=== PATIENT | female | born 1950 | race Caucasian/White ===

== ENCOUNTER → 2021-09-24 10:18 | Outpatient (CLI) | payer BC, SELFPAY ==
[2021-09-24 15:04] LABS: COVID19 -Nasal RAPID Negative (Negative)
--- NOTE | 2021-09-25 19:14 | DI.NM.S_ITS ---
DATE OF SERVICE: 09/24/2021 PROCEDURE: Exercise perfusion study. INDICATION: Syncope and SVT. RADIOPHARMACEUTICAL: 25.5 millicurie technetium-99m Myoview IV was injected at stress and 25.5 millicurie technetium-99m Myoview IV was injected at rest. CARDIAC STRESS: The patient underwent exercise perfusion study under the supervision of an attending staff. The patient walked on Dc protocol for 7 minutes and 22 seconds, achieved a maximum heart rate of 142, which was 96 percent of target heart rate. Baseline blood pressure 142/88 mmHg. Peak blood pressure 192/100 mmHg. In recovery, blood pressure returned back to 138/82 mmHg. The patient achieved 10.1 METs of workload. ANGÉLICA -30 percent. Baseline rhythm was sinus. During exercise, the patient had some nonspecific ST-T changes and occasional PVCs without any obvious ventricular tachycardia or atrial fibrillation. Artifact seen, as well. No chest discomfort. Had some shortness of breath. RAW DATA: There is adequate myocardial uptake. GATED STUDY: Resting LV ejection fraction 71 and stress LV ejection fraction 76 percent. Resting end-diastolic volume 79 mL. TID ratio 0.98, which is within normal limits. Lung/heart ratio 0.24, which is within normal limits. MYOCARDIAL PERFUSION SCAN: Stress supine, resting supine and stress prone images were compared to each other. The patient has normal myocardial perfusion. Summed stress score and summed rest score 0. CONCLUSION: This is a normal myocardial perfusion study. Good exercise tolerance. ANGÉLICA -30 percent. Hypertensive blood pressure response. Peak blood pressure 192/100 mmHg. No significant ischemic electrocardiographic changes or sustained arrhythmias seen. No chest discomfort. Left ventricular function is preserved. Overall low-risk myocardial perfusion scan. Carolyn Ventura - REAGAN/mandy/juliet doc#: [id number]/job#: [id number] dd: 09/25/2021 16:53:00 dt: 09/25/2021 19:02:00 DICTATING MD/COPIES TO: Mike Stanton MD COPIES MNE: OLENA;
== END ==
PROVIDERS: PCP Physician Assistant; Referring Provider Internal Medicine Cardiovascular Disease; Visit Provider Internal Medicine Cardiovascular Disease
DX: R55 Syncope and collapse (principal); I47.1 Supraventricular tachycardia; I47.2 Ventricular tachycardia; Z20.822 Contact with and (suspected) exposure to COVID-19
CPT/HCPCS: 78452; 87635; 93017; A9502

== ENCOUNTER 2022-10-01 09:41 | Emergency (ER) | payer BC, SELFPAY ==
--- NOTE | 2022-10-01 | DI.RAD.S_ITS ---
PROCEDURE: XR HIP W PEL IF DONE LT 2V INDICATIONS: LOW BACK PAIN / LEFT HIP PAIN TECHNIQUE: AP pelvis with lateral view(s) of the left hip(s). COMPARISON: None. FINDINGS: Bones: Moderate left and derf-ko-xbnfzblr right hip degenerative changes. Partially seen pubic symphysis degenerative changes also present. No displaced fracture or dislocation. Soft tissues: No suspicious calcifications. Suspected phleboliths are present in the pelvis. IMPRESSION: Moderate left and auaf-we-zxovfoiq right hip degenerative changes. No acute radiographic abnormality. If there is high concern for further derangement, consider MRI evaluation. Dictated by: Davon Bolivar M.D. on 10/01/2022 at 11:41 Approved by: Davon Bolivar M.D. on 10/01/2022 at 11:42
[2022-10-01 09:47] VITALS: BP 164/69; PULSE 65; RESP 22; O2SAT 98; BMI 28.6
--- NOTE | 2022-10-01 10:07 | DI.RAD.S_ITS ---
PROCEDURE: XR LUMBAR SPINE 2-3V INDICATIONS: low back pain TECHNIQUE: 3 views of the lumbar spine were acquired. COMPARISON: None. FINDINGS: Bones: Trace retrolisthesis of L2 on L3. Vertebral body heights are well maintained. Iszj-xo-dhjwgoiq degenerative changes, with disc space height loss, facet arthropathy, and osteophytes. No definite traumatic subluxation. Rightward spinal curvature is present on frontal view. Bilateral hip degenerative changes are partially seen. Soft tissues: No suspicious calcifications. Pelvic calcifications are probably phleboliths. Increased fecal loading. IMPRESSION: Mgsu-xn-vqivnpbv degenerative changes. Suspected degenerative retrolisthesis of L2 on L3, as well as rightward spinal curvature. If there is high concern for further derangement, consider MRI evaluation. Dictated by: Davon Bolivar M.D. on 10/01/2022 at 11:39 Approved by: Davon Bolivar M.D. on 10/01/2022 at 11:41
[2022-10-01] MEDS: KETOROLAC 30 MG/ML VIAL IM (10:41)
--- NOTE | 2022-10-01 11:33 | ED_ITS ---
HPI - Back Pain/Injury <Hai Coffey PA-C - Last Filed: 10/01/22 15:17> General Chief Complaint: Back Pain/Injury Stated Complaint: low back px Time Seen by Provider: 10/01/22 10:06 Source: patient and EMS History of Present Illness HPI Narrative: 71-year-old female with chronic back pain presents to the ED due to worsening lower back pain for the last 5 days. Patient states that she was trying to clip the toenails of her dog when she twisted her lower back, which caused her symptoms. Patient denies numbness, tingling, weakness, saddle paresthesias, urinary hesitancy, urinary incontinence, bowel incontinence. Patient states that she took a oxycodone this morning. Patient also took some Tylenol and ibuprofen. Patient reports modest relief with the medications. Patient describes the pain as in the left-side of the lower back radiating down into the left leg up until the knee. Patient states that it is very painful to bear weight and walk. Related Data Previous Rx's Medication Instructions Recorded oxycodone-acetaminophen 5 mg-325 1 tab PO TID PRN pain 3 days #10 10/01/22 mg tablet (Percocet) tabs prednisone 5 mg tablets in a dose See Rx Instructions PO .COMPLEX 10/01/22 pack #21 ea Review of Systems <Hai Coffey PA-C - Last Filed: 10/01/22 15:17> Review of Systems ROS Unobtainable: All systems reviewed & are unremarkable except as noted in HPI and below Constitutional Constitutional: Denies chills, Denies fatigue, Denies fever(s), Denies frequent falls, Denies lethargy and Denies weakness Eyes Eyes: Denies change in vision, Denies eye discharge, Denies irritation and Denies loss of vision ENT Ears, Nose, Mouth, and Throat: Denies change in voice, Denies dizziness, Denies neck pain, Denies sore throat and Denies throat swelling Cardiovascular Cardiovascular: Denies chest pain, Denies irregular heart rhythm, Denies lightheadedness, Denies palpitations, Denies dyspnea, Denies dyspnea on exertion and Denies orthopnea Respiratory Respiratory: Denies cough, Denies dyspnea, Denies dyspnea on exertion and Denies wheezing Gastrointestinal Gastrointestinal: Denies abdominal pain, Denies change in bowel habits, Denies diarrhea, Denies nausea and Denies vomiting Genitourinary Genitourinary: Denies hematuria, Denies flank pain, Denies urinary incontinence and Denies urinary urgency Musculoskeletal Musculoskeletal: Reports back pain, Denies muscle weakness, Denies neck pain, Denies numbness and Denies tingling Integumentary/Breasts Skin/Breast: Denies pruritus, Denies erythema, Denies rash and Denies wounds Neurologic Neurologic: Denies behavioral changes, Denies confusion, Denies dizziness, Denies frequent falls, Denies loss of vision, Denies numbness, Denies tingling and Denies weakness Psychiatric Psychiatric: Denies anxiety, Denies behavioral changes, Denies confusion, Denies depression, Denies homicidal ideation and Denies suicidal ideation Endocrine Endocrine: Denies fatigue, Denies flushing and Denies palpitations Hematologic/Lymphatic Hematologic/Lymphatic: Denies easy bruising Allergic/Immunologic Allergic/Immunologic: Denies urticaria, Denies throat swelling and Denies wheezing Patient History <Hai Coffey PA-C - Last Filed: 10/01/22 15:17> Social History Smoking Status: Never smoker Smoking Status: Never smoker alcohol intake frequency: 0-2 drinks per day Exam <Hai Coffey PA-C - Last Filed: 10/01/22 15:17> Narrative Exam Narrative: Const General:?cooperative, healthy appearing and comfortable [facility] Head:?normal to inspection Ears:?hearing grossly normal bilaterally Nose:?external nose normal Face and sinus:?normal facial exam and sinuses nontender Mouth:?oral mucosae normal Throat:?posterior oropharynx normal Eyes General:?appearance normal, both eyes and all related structures Neck Neck:?normal visual inspection and no lymphadenopathy noted Resp Effort & Inspection:?normal respiratory effort Auscultation:?clear to auscultation bilaterally Cardio Rate:?regular rate Rhythm:?regular rhythm Musculoskeletal No midline tenderness to palpation. No paraspinal tenderness to palpation. Full range of motion. Strength and sensation is intact. Patient is neurovascularly intact. Neuro General:?patient alert, patient awake and patient oriented x3 Initial Vital Signs Initial Vital Signs: Vital Signs Pulse Rate 65 10/01/22 09:47 Respiratory Rate 22 10/01/22 09:47 Blood Pressure 164/69 H 10/01/22 09:47 Pulse Oximetry 98 10/01/22 09:47 Oxygen Delivery Method Room Air 10/01/22 09:47 <Ingrid Glaser DO - Last Filed: 10/02/22 08:54> Initial Vital Signs Initial Vital Signs: Vital Signs Pulse Rate 65 10/01/22 09:47 Respiratory Rate 22 10/01/22 09:47 Blood Pressure 164/69 H 10/01/22 09:47 Pulse Oximetry 98 10/01/22 09:47 Oxygen Delivery Method Room Air 10/01/22 09:47 Course <Hai Coffey PA-C - Last Filed: 10/01/22 15:17> Orders Ordered: Discontinued Medications Cyclobenzaprine HCl (Cyclobenzaprine 10 Mg Tablet) 10 mg PO NOW ONE Stop: 10/01/22 11:46 Last Admin: 10/01/22 12:21 Dose: 10 mg Documented By: MPO Ketorolac Tromethamine (Ketorolac 30 Mg/Ml Vial) 30 mg IM NOW ONE Stop: 10/01/22 10:28 Last Admin: 10/01/22 10:41 Dose: 30 mg Documented By: MPO Lidocaine (Lidocaine Patch 1 Each Adh..Patch) 1 each TOP NOW ONE Stop: 10/01/22 11:47 Last Admin: 10/01/22 12:21 Dose: 1 each Documented By: MPO Morphine Sulfate (Morphine 4 Mg/Ml Inj) 4 mg IM NOW ONE Stop: 10/01/22 13:11 Last Admin: 10/01/22 13:57 Dose: 4 mg Documented By: JANIS Oxycodone/Acetaminophen (Oxycodone/Acetaminophen 5/325 Tablet) 1 tab PO NOW ONE Stop: 10/01/22 11:46 Last Admin: 10/01/22 12:25 Dose: Not Given Documented By: MPO Vital Signs Vital signs: Vital Signs - 8 hr 10/01/22 09:47 10/01/22 14:00 Pulse Rate 65 56 L Respiratory Rate 22 18 Blood Pressure 164/69 H 158/71 H Pulse Oximetry 98 98 Oxygen Delivery Method Room Air Room Air <Ingrid Glaser DO - Last Filed: 10/02/22 08:54> Orders Ordered: Discontinued Medications Cyclobenzaprine HCl (Cyclobenzaprine 10 Mg Tablet) 10 mg PO NOW ONE Stop: 10/01/22 11:46 Last Admin: 10/01/22 12:21 Dose: 10 mg Documented By: AURORA Ketorolac Tromethamine (Ketorolac 30 Mg/Ml Vial) 30 mg IM NOW ONE Stop: 10/01/22 10:28 Last Admin: 10/01/22 10:41 Dose: 30 mg Documented By: AURORA Lidocaine (Lidocaine Patch 1 Each Adh..Patch) 1 each TOP NOW ONE Stop: 10/01/22 11:47 Last Admin: 10/01/22 12:21 Dose: 1 each Documented By: AURORA Morphine Sulfate (Morphine 4 Mg/Ml Inj) 4 mg IM NOW ONE Stop: 10/01/22 13:11 Last Admin: 10/01/22 13:57 Dose: 4 mg Documented By: JANIS Oxycodone/Acetaminophen (Oxycodone/Acetaminophen 5/325 Tablet) 1 tab PO NOW ONE Stop: 10/01/22 11:46 Last Admin: 10/01/22 12:25 Dose: Not Given Documented By: AURORA Vital Signs Vital signs: Vital Signs - 8 hr 10/01/22 09:47 10/01/22 14:00 Pulse Rate 65 56 L Respiratory Rate 22 18 Blood Pressure 164/69 H 158/71 H Pulse Oximetry 98 98 Oxygen Delivery Method Room Air Room Air MDM - Back Pain/Injury <Hai Coffey PA-C - Last Filed: 10/01/22 15:17> MDM Narrative Medical decision making narrative: 71-year-old female with chronic back pain presents to the ED due to worsening lower back pain for the last 5 days. Concern for fracture/dislocation versus musculoskeletal sprain/strain versus disc etiology versus other. Obtained lumbar x-ray with no acute findings. Will give patient Flexeril, lidocaine patch, Percocet. Will reassess. Patient took the Flexeril and lidocaine patch. Patient declined the Percocet initially. Patient agrees to take further pain medication, given that the Flexeril and lidocaine did not provide adequate relief. Patient was given morphine with good pain relief. Discussed continued supportive care with Percocet, ibuprofen. Prescription sent for Percocet, prednisone. Recommend follow-up with PCP as soon as possible. ED return precautions were discussed with patient. Patient verbalized understanding. Medical records reviewed: Yes Discharge Plan Departure Patient Disposition: Home Clinical Impression: Sciatica Instructions: DI for Back Pain With Sciatica Activity Restrictions/Additional Instructions: You were evaluated in the ED today for lower back pain. Your x-ray did not show any fractures or dislocations. Your symptoms are likely due to a musculoskeletal sprain/strain versus disc injury. Your pain responded well to the lidocaine, Flexeril, morphine. You are being prescribed Percocet and prednisone for the next few days. Please also take ibuprofen 600 mg 3 times a day with food to reduce inflammation and pain. Please follow-up with your PCP and an ortho specialist as soon as possible. Return to the ED if you have worsening symptoms, numbness, tingling, weakness, urinary difficulties. Prescriptions: New oxycodone-acetaminophen [Percocet] 5-325 mg tablet 1 tab PO TID PRN (Reason: pain) 3 Days Qty: 10 0RF prednisone 5 mg tablets,dose pack See Rx Instructions .ROUTE .COMPLEX Qty: 21 0RF Rx Instructions: orally per package directions Referrals: Clare Macias PA-C [Primary Care Provider] - Stand Alone Forms: Patient Portal/API <Ingrid Glaser DO - Last Filed: 10/02/22 08:54> Cosign ED Attending Ivethature Attestation: I was immediately available in the department for consultation. Documentation has been reviewed.
[2022-10-01] MEDS: LIDOCAINE PATCH 1 EACH ADH..PATCH TOP (12:21)
[2022-10-01] MEDS: CYCLOBENZAPRINE 10 MG TABLET PO (12:21)
[2022-10-01] MEDS: MORPHINE 4 MG/ML INJ IM (13:57)
[2022-10-01 14:00] VITALS: BP 158/71; PULSE 56; RESP 18; O2SAT 98
== END 2022-10-01 15:00 | disposition home or self-care (01) ==
PROVIDERS: Emergency Provider Student in an Organized Health Care Education/Training Program; PCP Physician Assistant
DX: M54.42 Lumbago with sciatica, left side (principal); X50.1XXA Overexertion from prolonged static or awkward postures, initial encounter
CPT/HCPCS: 72100; 73502; 96372; 99283; 99284; J1885; J2270

== ENCOUNTER → 2023-05-30 11:29 | Outpatient (CLI) | payer BC, SELFPAY ==
--- NOTE | 2023-05-30 11:31 | DI.CT.S_ITS ---
PROCEDURE: CT LUMBAR SPINE WO CON INDICATIONS: Spinal stenosis, lumbar region TECHNIQUE: Noncontrast 3 mm thick sections acquired from the T12 level to the sacrum. Sagittal and coronal reformats were constructed. For radiation dose reduction, the following was used: automated exposure control. COMPARISON: [facility] Outside Film, MR, MR LUMBAR SPINE WITH/WITHOUT CONTRAST, 10/10/2022, 12:10. FINDINGS: Mild dextroscoliosis of the lumbar spine, centered at L3-4. Mild retrolisthesis L2 on L3. Vertebral body heights are well maintained. Multilevel degenerate disc disease of the lumbar spine, most pronounced and severe at L2-3. Posterior decompression at L3 to L5. Vertebral hemangioma in the left L1 pedicle. Vertebral hemangioma in L3 vertebral body. T12-L1: Unremarkable L1-2: Unremarkable L2-3: Posterior disc uncovering. Mild right and moderate left neural foraminal stenosis. No osseous central canal stenosis. L3-4: Posterior decompression. No central canal stenosis. Mild bilateral facet arthropathy. Moderate right and left neural foraminal stenosis. L4-5: Posterior decompression. No central canal stenosis. Moderate bilateral neural foraminal stenosis. Mild bilateral facet arthropathy. L5-S1: Moderate bilateral facet arthropathy. Posterior decompression. No central canal stenosis . No neural foraminal stenosis. other soft tissue findings: 2.9 cm cyst seen in the left ovary. No abdominal aortic aneurysm. IMPRESSION: 1. Posterior decompression and L3-L5. 2. Multilevel degenerate changes of the lumbar spine, most pronounced at L4-5, there is moderate bilateral neural foraminal stenosis. 3. 2.9 cm cyst in the left ovary. No follow-up imaging is recommended. Dictated by: Leelee Diaz M.D. on 06/04/2023 at 11:21 Approved by: Leelee Diaz M.D. on 06/04/2023 at 11:35
== END ==
LOC: CT 11:29
PROVIDERS: PCP Physician Assistant; Referring Provider Orthopaedic Surgery Orthopaedic Surgery of the Spine; Visit Provider Orthopaedic Surgery Orthopaedic Surgery of the Spine
DX: M48.062 Spinal stenosis, lumbar region with neurogenic claudication (principal); M47.816 Spondylosis without myelopathy or radiculopathy, lumbar region; M47.817 Spondylosis without myelopathy or radiculopathy, lumbosacral region; N83.202 Unspecified ovarian cyst, left side
CPT/HCPCS: 72131

== ENCOUNTER 2023-06-30 08:04 | Inpatient (IN) | payer BC, MEDICARE, SELFPAY ==
[2023-06-30] VITALS (24 sets, daily range): BP systolic 124–188; BP diastolic 55–116; PULSE 59–101; RESP 10–19; TEMP 35.2–37; O2SAT 10–100
--- NOTE | 2023-06-30 09:03 | PM.PREOP ---
Pre-operative Note Interval Note History & Physical reviewed/Exam performed by Physician: Yes Changes to H&P: No
--- NOTE | 2023-06-30 09:11 | P.HP_ITS ---
History of Present Illness History of Present Illness Date Patient Seen: 06/30/23 Time Patient Seen: 09:11 Date of Onset of Symptoms: 09/25/22 Chief complaint: Lumbar TLIF Narrative: Ms. Ventura is a 72 yo F with history of previous lumbar laminectomies at multiple levels. Patient has been having progressively worsening back pain and radiating left leg pain. Patient was found to have a large L2-3 extruded disc causing left sided L2-3 stenosis with nerve root impingement. Patient was scheduled for surgical treatment. [facility] Medical History History of COVID-19 (~2021) IBS (irritable bowel syndrome) Breast cancer (2021) Syncope History of viral meningitis Migraines Vertigo Nerve pain Osteoporosis Hypothyroidism HTN (hypertension) Lumbar disc herniation Lumbar post-laminectomy syndrome Chronic low back pain SVT (supraventricular tachycardia) NSVT (nonsustained ventricular tachycardia) Surgical History Hx of hemorrhoidectomy Hx of colonoscopy Hx of arthroscopy of left knee History of lumpectomy of right breast (2021) Hx of bilateral cataract extraction Hx of tonsillectomy Hx of appendectomy Hx of shoulder surgery Hx of laminectomy (2005) Social History household members: spouse Smoking Status: Former smoker alcohol intake: current Meds Home Medications and Allergies Home Medications Medication Instructions Recorded Confirmed Type acetaminophen 500 mg capsule 500 mg PO DAILY 06/24/23 06/24/23 History acyclovir 400 mg tablet 400 mg PO DAILY PRN Flare up 06/24/23 06/24/23 History anastrozole 1 mg tablet 1 mg PO DAILY 06/24/23 06/24/23 History gabapentin 600 mg tablet 600 mg PO TID 06/24/23 06/24/23 History ibuprofen 200 mg tablet 600 mg PO DAILY 06/24/23 06/24/23 History levothyroxine 150 mcg tablet 150 mcg PO DAILY 06/24/23 06/24/23 History lisinopril 40 mg tablet 40 mg PO BEDTIME 06/24/23 06/24/23 History meclizine 25 mg tablet 25 mg PO DAILY PRN Vertigo, nausea 06/24/23 06/24/23 History pregabalin 100 mg capsule 100 mg PO BID 06/24/23 06/24/23 History verapamil 240 mg tablet,extended 240 mg PO BEDTIME 06/24/23 06/24/23 History release zolmitriptan 5 mg tablet (Zomig) 5 mg PO Q2-4H PRN Migraine Headache 06/24/23 06/24/23 History Allergies Allergy/AdvReac Type Severity Reaction Status Date / Time cat dander Allergy Intermediate Red eyes, Verified 06/30/23 09:04 trouble breathing
--- NOTE | 2023-06-30 09:18 | SUR.OPER ---
Prone on spine table, head in foam head support, padded chest and pelvic supports, gel pad at knees, lower legs supported by pillows; nipples, genitalia and toes free of pressure, arms secured on foam padded arm boards at <90 degrees abduction. Tape over blanket at thigh secured to table.
[2023-06-30] MEDS: LACTATED RINGERS 1,000 ML 42 ML IV ×2 (09:26→12:12)
[2023-06-30] MEDS: CEFAZOLIN 2 GM/100 ML PREMIX 100 ML IV ×2 (09:56→17:25)
[2023-06-30] MEDS: BUPIVACAINE LIPOSOME 266 MG/20 ML VIAL INJ (10:47)
[2023-06-30] MEDS: BUPIVACAINE 0.25% (PF) 60 ML, EPINEPHrine 0.15 MG INJ (10:47)
--- NOTE | 2023-06-30 12:24 | PM.OP.1 ---
Operative Date/Time/Diagnoses Date of procedure: 06/30/23 Time of procedure: 10:25 Pre-op diagnosis: 1. L2-3 spinal stenosis 2. L2-3 history of laminectomy with recurrent disc herniation Post-op diagnosis: same Procedure & Clinicians Procedure: 1. L2-3 Postero-lateral and posterior interbody fusion 2. L2-3 interbody cage placement. 3. L2-3 decompressive laminectomy with bilateral facetecomies 4. L2-3 Posterior non-segmental instrumentation 5. [place] of bone marrow from iliac crest 6. Utilization of microsurgical technique and operating microscope 7. Utilization of robotic assisted navigation Same procedure as scheduled: Yes Indications: Patient has been having chronic back pain and worsening lumbar radiculopathy. Patient had previous history of L2-S1 laminectomy in 2005 has been doing well until 6 months ago. Patient was found have a large L2-3 extruded disc with caudal migration causing significant radiculopathy correlating with patient's symptoms. Patient failed multiple conservative management with worsening pain weakness and numbness in her lower extremity. Patient has been having difficulty performing activity of daily living. After discussing risks benefits of treatment options, patient elected proceed with surgery. Surgeon: Celeste Crandall Fill Manager: Karina Renteria Click Yes if Unassisted: No Anesthesia Type: General Operative Notes Closure Type: primary Prosthetic devices, grafts, tissues, transplants, or devices: Globus CREO MIS screws, Rise cage Estimated Blood Loss (mL): 100 Blood products transfused: none Procedure in detail: Patient was seen in the preoperative area. Risks and benefits of the surgery was discussed with the patient. Informed consent was obtained from the patient and placed in the chart. Surgical site was marked. Patient was taken to the operative room. General anesthesia was administered. Prophylactic antibiotic was given to the patient less than 30 min before the incision was made. Patient was placed into a prone position on the Kb table. Patient's back was then prepped and draped in the sterile fashion. Time-out was performed at this time. After patient was prepped and draped, patient's PSIS was palpated and marked bilaterally. Small 1 cm incision was made over the PSIS for placement of the reference probes. Two trocar was placed into the PSIS 1 on each side. The reference probe was attached to the trocar of the reference apparatus. At this time the C-arm imaging was used to confirm AP and lateral of L2, L3 vertebrae and merged the C-arm imaging using the [employer] robotic navigation system with the CT of the lumbar spine. After successful merging was completed and confirmed, skin marker was used to ab out the skin incision using the [employer] robotic arm. Bilateral incision was made at this time. Pre templated trajectory was used and guided using the [employer] robotic navigation system for bilateral L2 L3 pedicle screw placement. This was done by using the robotic arm to guide the high-speed bur to make a cortical entry point. Next a drill was placed also using the robotic arm and guided using the navigation system drilling partially through bilateral L2, L3 pedicles. Next L2, L3 pedicle screws it was pre templated and measured was placed onto the power rental car ferry driver and inserted into the pedicles bilaterally. After all 6 screws were placed C-arm imaging was taken of both AP and lateral to confirm the placement. Excellent placement of the screws were confirmed and a matched precisely with the pre planned screw placement using the navigation system. MARs retractor was inserted using Second Funnel[employer] guidence. Globus MARS retractors was placed inside the incision and docked onto the L2 lamina. Using microsurgical technique and operating microscope, a L2 laminectomy and L2-3 facetectomy was performed using a Kerrison rongeur. Patient was found have severe lateral recess and neural foramen stenosis which was fully decompressed after the laminectomy facetectomy. The laminectomy and facetectomy was performed in order to decompress patient's cauda equina as well as the nerve roots exiting at the L2-3 level. More than 75% of the facets were removed during the process of decompression rendering L2-3 level grossly unstable and required a fusion procedure at the same time. The disc space at L2-3 was identified, and a total diskectomy was performed at L2-3 level. The endplates were decorticated using a rasp and shaver. The total diskectomy and decortication was performed at L2-3 level in order to to accomplish a L2-3 fusion. The local bone from the laminectomy and facetectomy was saved for local bone grafting. After the total diskectomy and decortication was completed, Trifecta bone graft material was combined with local bone that was harvested earlier. Patient has significant amount of epidural scarring from prior decompression surgery. Scar tissue was carefully resected to expose the disc material. Micro curette was used to free up the disc fragment and significant amount of disc was able to be removed from caudal to the L2-3 disc to decompress the epidural space and lateral recess. At this time, a separate skin is incision was made over the iliac crest. A Jamshidi needle was inserted into the iliac crest through a separate skin incision. 5 cc of bone marrow aspiration was obtained through the separate skin incision using a Jamshidi needle from the iliac crest. The bone marrow aspiration was combined with local bone and the Trifecta bone grafting material. The bone grafting material was placed into the L2-3, L3-4 interbody space along with expandable cages. One cage each was inserted into the L2-3 interbody space along with bone graft material. The cage was expanded to its maximum height using the torque limiting screwdriver. The disc preparation as well as the cage insertion were also performed under navigation guidance. After the cage was placed, AP and lateral C-arm imaging was taken to confirm placement of the cage and excellent position was confirmed. Globus MARS retractor was inserted and docked onto the L2-3 posterolateral gutter on the right side. Using the power drill, posterior-lateral decortication was performed at L2-3 level until bleeding cortical bone was identified. The remaining bone grafting material was placed into the L2-3 posterior lateral gutter he order to accomplish posterolateral fusion at the L2-3 level. At this time the tulips were attached to the L2, L3 pedicle screw shanks. After measuring the length of the rods, they were inserted into the tulips of the pedicle screws and locked in place using locking caps and torque limiting screwdriver bilaterally. Total 4 caps and 2 titanium rods was used in order to complete the posterior instrumentation construct. After all the hardware was placed, and confirmed with AP and lateral C-arm imaging, the wound was then irrigated with sterile normal saline and packed with Ray-Emiliano gauze for 3 min to accomplish hemostasis. After the gauze was removed the deep fascia was closed with #1 Vicryl suture. The subcutaneous layer was closed with 2-0 Vicryl. The skin was closed with skin leana. Patient tolerated the procedure well. There were no complications. Neuro monitoring system was used to monitor patient's neurologic status throughout entire procedure. There was no disturbance of the neural monitoring signals throughout the case. The Operation could not have been safely performed without compromising the technical result or length of the procedure, without the assistance of a skilled certified ophthalmic surgical assistant. The certified ophthalmic surgical assistant was medically necessary for proper positioning, retraction and manipulation of instruments, proper exposure, surgical preparation, and manipulation of tissue. Complications: none Post-operative Condition: stable Disposition: PACU Plan for aftercare: Admit to inpatient hospital
--- NOTE | 2023-06-30 12:33 | DI.RAD.S_ITS ---
PROCEDURE: XR LUMBAR SPINE 2-3V INDICATIONS: L2-3 TLIF (ROBOT) TECHNIQUE: 2 views of the lumbar spine were acquired. COMPARISON: [facility], CT, CT LUMBAR SPINE WO CON, 05/30/2023, 12:15. [facility], MR, MR LUMBAR SPINE WITH/WITHOUT CONTRAST, 10/10/2022, 12:10. [facility], CR, XR LUMBAR SPINE 2-3V, 10/01/2022, 10:17. FINDINGS: 2 intraoperative fluoroscopy images demonstrate discectomy and posterior fusion at L2-L3, which are not labeled on images. There is a disc prosthesis in the intervertebral disc spaces at L2-L3. IMPRESSION: Postsurgical changes in lumbar spine. Dictated by: Flip Marshall M.D. on 06/30/2023 at 13:31 Approved by: Flip Marshall M.D. on 06/30/2023 at 13:35
[2023-06-30] MEDS: fentaNYL 100 MCG/2 ML INJ IV ×2 (12:54→13:00)
[2023-06-30] MEDS: LORazepam 2 MG/ML INJ 0.25 MG IV (12:57)
[2023-06-30] MEDS: OXYCODONE IR 5 MG TABLET PO (13:12)
[2023-06-30] MEDS: HYDROMORPHONE 1 MG INJ IV ×2 (13:21→13:26)
[2023-06-30] MEDS: LACTATED RINGERS 1,000 ML 125 ML IV ×2 (14:20→22:11)
[2023-06-30] MEDS: VERAPAMIL 80 MG TABLET PO ×2 (16:03→20:43)
[2023-06-30] MEDS: GABAPENTIN 600 MG TABLET PO ×2 (16:04→20:44)
[2023-06-30] MEDS: OXYCODONE IR 10 MG TABLET PO ×3 (16:15→23:51)
[2023-06-30] MEDS: HYDROMORPHONE 0.5 MG INJ IV ×2 (19:32→22:10)
[2023-06-30] MEDS: DOCUSATE 100 MG CAPSULE PO (20:42)
[2023-06-30] MEDS: SENNOSIDES 8.6 MG TABLET 17.2 MG PO (20:43)
[2023-06-30] MEDS: PREGABALIN 50 MG CAPSULE 100 MG PO (20:43)
[2023-06-30] MEDS: lisinopriL 20 MG TABLET 40 MG PO (20:44)
[2023-07-01] VITALS (7 sets, daily range): BP systolic 134–165; BP diastolic 66–78; PULSE 65–74; RESP 16–19; TEMP 36.2–36.9; O2SAT 93–98
[2023-07-01] MEDS: CEFAZOLIN 2 GM/100 ML PREMIX 100 ML IV (02:04)
[2023-07-01] MEDS: OXYCODONE IR 10 MG TABLET PO ×3 (02:24→09:15)
[2023-07-01] MEDS: LEVOTHYROXINE 50 MCG TABLET 150 MCG PO (06:08)
[2023-07-01] MEDS: LACTATED RINGERS 1,000 ML 125 ML IV (06:15)
--- NOTE | 2023-07-01 06:54 | PC.NURSE ---
Pt was up to the bedside commode once at the beginning of the shift. Used external female catheter throughout the nigt. Pt repositioning in bed independently. Pain management with oxycodone 10 mg, dressing to back CDI. Using IS independently.
--- NOTE | 2023-07-01 07:07 | PM.PNPO.1 ---
Subjective Subjective Date Patient Seen: 07/01/23 Time Patient Seen: 07:07 Interval history: Pain has been moderate to severe overnight. Denies fever or chills. No nausea or vomiting. Patient has her home to assist her however he has had 3 hip surgeries of his own and will be limited in his ability to assist her at home. They have 2 steps into their house. Patient has not yet been out of bed since surgery. Exam Vital Signs (past 8 hours): - 07/01/23 00:25 07/01/23 03:42 Temperature 97.2 F L 97.7 F Pulse Rate 66 73 Respiratory Rate 16 18 Blood Pressure 165/78 H 134/66 Pulse Oximetry 98 93 Oxygen Flow Rate 0 0 Oxygen Delivery Method Nasal Cannula Oxygen Flow Rate 0 Narrative Exam Narrative: 72-year-old female resting comfortably in bed in no apparent distress. Motor functions intact bilateral lower extremities. Sensation grossly intact to light touch bilateral lower extremities. Dressing is clean, dry and intact. Const General: cooperative and comfortable Nutritional Appearance: average body habitus Orientation: alert Resp Effort & Inspection: normal respiratory effort and able to speak in complete sentences [facility] Medical History History of COVID-19 (~2021) IBS (irritable bowel syndrome) Breast cancer (2021) Syncope History of viral meningitis Migraines Vertigo Nerve pain Osteoporosis Hypothyroidism HTN (hypertension) Lumbar disc herniation Lumbar post-laminectomy syndrome Chronic low back pain SVT (supraventricular tachycardia) NSVT (nonsustained ventricular tachycardia) Surgical History Hx of hemorrhoidectomy Hx of colonoscopy Hx of arthroscopy of left knee History of lumpectomy of right breast (2021) Hx of bilateral cataract extraction Hx of tonsillectomy Hx of appendectomy Hx of shoulder surgery Hx of laminectomy (2005) Social History household members: spouse Smoking Status: Former smoker alcohol intake: current Assessment & Plan Post-op Postoperative Procedures: Procedures Operation Date: 06/30/23 09:45 Actual Procedure Side Surgeon p L2-3 TLIF-Robot Celeste Crandall MD Postoperative day: 1 Postoperative status: marginal pain control Postoperative plan narrative: Mobilize with physical therapy, limit bending, twisting, lifting Multimodal pain management Disposition likely home today or tomorrow when safe for home environment Quality VTE Deep Vein Thrombosis/Pulmonary Embolism Present on Admission: No
[2023-07-01] MEDS: GABAPENTIN 600 MG TABLET PO ×3 (08:54→20:00)
[2023-07-01] MEDS: ACETAMINOPHEN 325 MG TABLET 650 MG PO (08:55)
[2023-07-01] MEDS: PREGABALIN 50 MG CAPSULE 100 MG PO ×2 (08:55→20:00)
[2023-07-01] MEDS: polyethylene glycoL 3350 17 GM POWD.PACK PO (08:56)
[2023-07-01] MEDS: DOCUSATE 100 MG CAPSULE PO ×2 (08:56→20:00)
[2023-07-01] MEDS: ANASTROZOLE 1 MG TABLET PO (09:15)
[2023-07-01] MEDS: diphenhydrAMINE 50 MG/ML VIAL 25 MG IV (09:18)
--- NOTE | 2023-07-01 10:15 | OT.IP.EVAL ---
Current Diagnoses Other intervertebral disc displacement, lumbar region (06/30/23) Postlaminectomy syndrome, not elsewhere classified (06/30/23) Surgery Performed Operation Date: 06/30/23 09:45 Actual Procedures p L2-3 TLIF-Robot - Celeste Crandall MD Past Medical History (Last Reviewed 07/01/23 @ 07:10 by Boston Underwood PA-C) Breast cancer (2021) Chronic low back pain History of COVID-19 (~2021) History of viral meningitis HTN (hypertension) Hypothyroidism IBS (irritable bowel syndrome) Lumbar disc herniation Lumbar post-laminectomy syndrome Migraines Nerve pain NSVT (nonsustained ventricular tachycardia) Osteoporosis SVT (supraventricular tachycardia) Syncope Vertigo Surgical History (Last Reviewed 07/01/23 @ 07:10 by Boston Underwood PA-C) History of lumpectomy of right breast (2021) Hx of appendectomy Hx of arthroscopy of left knee Hx of bilateral cataract extraction Hx of colonoscopy Hx of hemorrhoidectomy Hx of laminectomy (2005) Hx of shoulder surgery Hx of tonsillectomy Occupational Therapy Inpatient Evaluation/Re-Eval M1 PT/OT-IP Prior Functional Status Start: 07/01/23 10:17 Freq: NEEDED Status: Active Protocol: Document 07/01/23 10:17 [facility] (Rec: 07/01/23 10:37 [facility] [id number]) Medical Review Prior Functional Status Medical History Reviewed Yes Communication Independent Mobility and Gait Pt states having to use a hurry cane or FWW in the house or 4ww outside. Activities of Daily Living and IADL's Pt having to use LB dressing equipment for needs due to having pain. Prior Functional Level (Other details) Pt's has had multiple surgeries and therefore limited for being able to lift the pt. Pt sleep in the lift chair. Social History Household Members spouse Living Arrangements House Number of Floors (Floors) One Floor Number of Stairs To Enter/Railing? 2 platform steps to get into the house and one step from the living room to family room to bedroom level when she can use the FWW to negotiate the step. Home Environment Standard Height Toilet,Walk in Shower Home Equipment Front Wheel Walker,Four Wheel Walker,Shower Seat with Backrest,Hand Held Shower,Long Handled Shoe Horn,Senior Process Engineer, Sock Aid, Lift Chair Additional Social History Comment Pt has a hurry cane. Pt's states has 50 yards to walk to be able to get into the house. Pt works for the [employer] in [place]. Pt has a person to clean the house every two weeks and someone to filler picker dog feces every week from their enclosed yard. M2 OT-IP Current Condition Start: 07/01/23 10:17 Freq: Status: Active Protocol: Document 07/01/23 10:17 [facility] (Rec: 07/01/23 10:37 [facility] [id number]) Occupational Therapy Current Condition Current Condition Evaluation Date 07/01/23 Treatment Diagnosis S/P L2-3 TLIF Diagnosis Onset Date 06/30/23 Post Operative Precautions Lumbar Precautions Log Roll,No Twisting,Limit Bending,Lifting Restriction of 10 lbs,Gait Belt above Incisional Area M3 OT- IP Subjective and Pain Start: 07/01/23 10:17 Freq: Status: Active Protocol: Document 07/01/23 10:17 [facility] (Rec: 07/01/23 10:37 [facility] [id number]) OT- Subjective Occupational Therapy Visit Type Type Initial Evaluation Visit Start Time 09:15 Visit Stop Time 10:15 Occupational Therapy Visit Comments Patient Comments Pt agreed to get up. Patient/Caregiver Goals To go home. OT Pain Assessment Pain When Pain Assessed During Mobility Pain Present Pain Present Pain Reported Location back Intensity 5 Scale Used Numeric (0 - 10) M4 OT- IP ADL's Start: 07/01/23 10:17 Freq: Status: Active Protocol: Document 07/01/23 10:17 [facility] (Rec: 07/01/23 10:37 [facility] [id number]) OT FYS-Kqnl-Cysptes General Evaluation Self-Feeding Ability Independent OT ADL-Grooming Comments OT Grooming Comments Not performed. OT ADL-Oral Care Comments Oral Care Comments NOt performed. OT ADL-Dressing General Eval Lower Body Dressing Ability Maximum Assistance Areas Needing Assistance Socks Comments OT Dressing Comments Pt states uses LB dressing equipment at home already. OT ADL-Toileting General Evaluation Toileting Ability Total Assistance Comments OT Toileting Comments Pt using Purewick. Suggested to have her BSC next to the bed at night and use of pads/ brief. At this time may be best to stand and wipe to best follow her back precautions. OT ADL-Bathing Comments OT Bathing Comments Not performed. Educated to cover the back dressing while showering to prevent it from getting wet. M5 OT- IP IADL's Start: 07/01/23 10:17 Freq: Status: Active Protocol: Document 07/01/23 10:17 [facility] (Rec: 07/01/23 10:37 [facility] [id number]) OT-Instrumental Activities of Daily Living Deficits IADL Deficits Identified Deficits Home Safety Awareness Awareness of Need for Assistance at Home Good Awareness Ability to Problem Solve Emergency Able to Problem Solve Situations Home Safety Comments Pt's to provide supervision as needed. Medication Management Medication Management No Deficits Identified Money Management Money Management No Deficits Identified Channeler Runner Channeler Runner Caregiver Provides Assist M6 OT- IP Functional Cognition Start: 07/01/23 10:17 Freq: Status: Active Protocol: Document 07/01/23 10:17 [facility] (Rec: 07/01/23 10:37 [facility] [id number]) Cognitive Factors Limiting Selfcare Function Cognitive Ability Level of Alertness Alert Patient Orientation Name,Age,Birthday,Month,Date, Year,Day of Week,Place, Situation Attention Span Ability Capable of Focused Attention, Capable of Sustained Attention Ability to Follow Commands Able to Follow One Step Commands Cognitive Comments Cognitive Assessment Comments Pt able to follow commands for mobility needs and states her back precautions. Pt needing reminders to use her hands to push up from the bed to stand. OT- Vision and Hearing OT- Hearing Assessment OT- Hearing Assessment WFL OT- Vision Assessment Visual Acuity Glasses All The Time Visual Attentiveness WFL Occular Pursuits WFL M7 OT- IP Mobility and Balance Start: 07/01/23 10:17 Freq: Status: Active Protocol: Document 07/01/23 10:17 [facility] (Rec: 07/01/23 10:37 [facility] [id number]) OT- Bed Mobility Assessment Rolling Type of Rolling Roll to Left Level of Assistance Minimal Assistance Supine to Sit Supine to Sit Assist Minimal Assistance Scooting Scooting to Edge of Bed Contact Guard Assistance, Bedrails OT-Transfer Assessment Sit to and From Stand Sit to and from Stand Moderate Assistance Transfers Transfer Ability Minimal Assistance,Moderate Assistance Technique Transfer Destination Bed,Chair Transfer Technique Stand Step Pivot Devices Transfer Assistive Devices Gait Belt,Front Wheeled Walker Comments Mobility Comments JAVIER to roll and JAVIER to assist to get her trunk upright. BP supine 132/69 and while seated on the edge of the bed 133/73. MIN/MODA to stand and vc to stiffen her left quads and needing heavy use of the FWW to transfer to the recliner. Also suggested as needing to walk 50yards from the car to house, just in case to have a chair/4ww set- up to rest 1/2 way if needed. OT- Balance Assessment Sitting Balance and Reactions Static Sitting Balance Ability Good Dynamic Sitting Balance Ability Good Standing Balance and Reactions Static Standing Balance Ability Fair Dynamic Standing Balance Ability Fair M8 OT- IP Objective Assessments Start: 07/01/23 10:17 Freq: Status: Active Protocol: Document 07/01/23 10:17 [facility] (Rec: 07/01/23 10:37 [facility] [id number]) OT Gross Range of Motion Upper Extremity Range of Motion Assessment Within Functional Limits OT Strength Upper Extremity Strength Assessment Within Functional Limits M9 OT- IP Assessment and Plan Start: 07/01/23 10:17 Freq: Status: Active Protocol: Document 07/01/23 10:17 [facility] (Rec: 07/01/23 10:37 [facility] [id number]) OT Summary Assessment and Plan Potential Rehabilitation Potential Good Analytic Complexity at Evaluation Low Summary OT Impairments Pain,Strength,Balance, Functional Mobility,Grooming, Dressing,Toileting,Bathing, Toilet Transfers,Shower Transfers,Activity Tolerance Progress Towards Goals Slow Progress due to Pain,Slow Progress due to Activity Tolerance Assessment Summary Pt low complexity and main barriers are pain, steps, and decreased activity tolerance. Pt has a supportive to be able to assist her at home but limited for lifting due to medical issues. Able to initiate caregiver training of ADL, mobility, and car transfer needs. Pt to go home with assist when medically stable. Goals Grooming Goal Independent Dressing Goal Independent Toileting Goal Independent Bathing Goal Standby Assistance Toilet Transfer Goal Independent Shower Transfer Goal Standby Assistance Days to Meet Goals 7 Frequency of Treatment Frequency Of Treatment Once a Day Treatment Plan OT Treatment Plan ADL Training,Functional Mobility,Patient/Family Education,Discharge Planning Discharge Recommendations OT Discharge Recommendations Home with Assistance Transportation Needs at Discharge Private Vehicle
--- NOTE | 2023-07-01 10:40 | PT.IIE ---
Current Diagnoses Other intervertebral disc displacement, lumbar region (06/30/23) Postlaminectomy syndrome, not elsewhere classified (06/30/23) Surgery Performed Operation Date: 06/30/23 09:45 Actual Procedures p L2-3 TLIF-Robot - Celeste Crandall MD Surgical History (Last Reviewed 07/01/23 @ 07:10 by Boston Underwood PA-C) History of lumpectomy of right breast (2021) Hx of appendectomy Hx of arthroscopy of left knee Hx of bilateral cataract extraction Hx of colonoscopy Hx of hemorrhoidectomy Hx of laminectomy (2005) Hx of shoulder surgery Hx of tonsillectomy Medical History (Last Reviewed 07/01/23 @ 07:10 by Boston Underwood PA-C) Breast cancer (2021) Chronic low back pain History of COVID-19 (~2021) History of viral meningitis HTN (hypertension) Hypothyroidism IBS (irritable bowel syndrome) Lumbar disc herniation Lumbar post-laminectomy syndrome Migraines Nerve pain NSVT (nonsustained ventricular tachycardia) Osteoporosis SVT (supraventricular tachycardia) Syncope Vertigo Physical Therapy Inpatient Evaluation/Re-Eval M1 PT/OT-IP Prior Functional Status Start: 07/01/23 12:09 Freq: NEEDED Status: Active Protocol: Document 07/01/23 10:40 AB (Rec: 07/01/23 12:24 AB [id number]) Medical Review Prior Functional Status Medical History Reviewed Yes Communication able to make needs known Mobility and Gait pt stated that she was modified independent with all mobilities and ambulation using a FWW indoors but occasionally uses a SPC; uses a 4WW for outdoor mobility Activities of Daily Living and IADL's per OT note: Pt having to use LB dressing equipment for needs due to having pain. Social History Household Members spouse Living Arrangements House Number of Floors (Floors) One Floor Number of Stairs To Enter/Railing? pt has 1 step to enter the house Home Environment Standard Height Toilet,Walk in Shower Home Equipment Front Wheel Walker,Four Wheel Walker,Bedside Commode,Raised Toilet Seat w/Armrests,Shower Seat with Backrest,Hand Held Shower,Long Handled Shoe Horn, Material Expediter,Sock Aid,Lift Recliner Additional Social History Comment pt lives with her spouse but stated that spouse has had 3 hip surgeries and is limited to the amount of assistance he can provide pt. Pt has a hurry cane. pt has a lift recliner that she has been using to sleep on M2 PT-IP Current Condition Start: 07/01/23 12:09 Freq: NEEDED Status: Active Protocol: Document 07/01/23 10:40 AB (Rec: 07/01/23 12:24 AB [id number]) Physical Therapy Current Condition Current Condition Evaluation Date 07/01/23 Treatment Diagnosis s/p L2-3 TLIF; difficulty in walking Onset Date 06/30/23 M3 PT-IP Subjective Start: 07/01/23 12:09 Freq: NEEDED Status: Active Protocol: Document 07/01/23 10:40 AB (Rec: 07/01/23 12:24 AB [id number]) Subjective Physical Therapy Visit Type Type Initial Evaluation Visit Start Time 10:40 Visit Stop Time 11:20 Number of TECHNICAL TRANSLATOR Visits 0 Physical Therapy Visit Comments Patient Comments agreeable to do PT Therapy Pain Assessment Pain When Pain Assessed At Rest Pain Present Pain Present Pain Reported Location back Intensity 2 Scale Used increases to 4-5/10 with mobility Pain Behaviors Facial Grimacing,Guarding, Wincing Pain Management Techniques Apply Cold,Distraction, Modification of Treatment,Re- positioning,Timing of Activity with Medications M4 PT-IP Mobility and Gait Start: 07/01/23 12:09 Freq: NEEDED Status: Active Protocol: Document 07/01/23 10:40 AB (Rec: 07/01/23 12:24 AB [id number]) PT-Transfer Assessment Sit to and From Stand Sit to and from Stand Maximum Assistance,1 Person Assistance,2 Person Assistance ,Use of Upper Extremities Equipment Transfer Assistive Device Gait Belt,Front Wheeled Walker Orthotic/Prosthetic Devices or Brace: No Comments Mobility Comments pt sitting on the chair and agreeable to do PT. spouse in room. obtained PLOF and home set up from pt. reviewed back precautions with pt . pt declined to do bed mobility and stated she sleeps on a lift chair at home. pt completed sit to stand from the chair max A x 1-2 and max cues requiring 2 attempts to get to upright position. ambulated ~ 5 ft using fWW max Ax 1 and max cues and with chair follow. increase unsteadiness with BLE shaking towards end of ambulation with pt needing to sit back down. pt rested. educated pt on sit<>stand techniques. pt completed sit<> stand x 4 reps requiring max A x 1-2 and max cues. positioned pt on the chair. call light and table placed within reach. informed pt regarding d/c plan possible SNF rehab. pt not wanting to go to SNF but spouse stating that he cannot assist pt. will inform insurance case manager. Gait Assessment Gait Gait Assistance Required: Maximum Assistance,1 Person Assist Distance (Feet) 5 Able to Maintain Weight Bearing Status Yes During Gait Assistive Devices Assistive Device Gait Belt,Front Wheeled Walker Orthotic/Prosthetic Devices or Brace: No Gait Deviations General Gait Pattern Decreased Stride Length, Decreased Feet Clearance,Step- to Gait Factors Limiting Gait Function Factors Limiting Gait Function Decreased Activity Tolerance, Decreased Strength,Difficulty Following Directions,Limited Range of Motion,Pain,Poor Balance,Poor Safety Awareness PT-Balance Assessment Sitting Balance and Reactions Static Sitting Balance Ability Good Dynamic Sitting Balance Ability Fair Standing Balance and Reactions Static Standing Balance Ability Poor Dynamic Standing Balance Ability Poor Device Used FWW M5 PT-IP Objective Assessments Start: 07/01/23 12:09 Freq: NEEDED Status: Active Protocol: Document 07/01/23 10:40 AB (Rec: 07/01/23 12:24 AB [id number]) Orientation Orientation/Cognition Level of Alertness Alert Orientation Name,Place,Situation Language Function Ability No Deficits Noted Safety Awareness Decreased Safety Awareness Memory Description No Deficits Noted Gross Range of Motion Lower Extremity ROM Assessment Within Functional Limits Strength Lower Extremity Strength Assessment Bilaterally Impaired Comments Strength Comments LLE: 3+/5 RLE: 4-/5 Coordination Assessment Gross Coordination Gross Coordination WNL Muscle Tone Muscle Tone WNL Yes M6 PT-IP Treatment Start: 07/01/23 12:09 Freq: NEEDED Status: Active Protocol: Document 07/01/23 10:40 AB (Rec: 07/01/23 12:24 AB [id number]) Physical Therapy Treatment Education Education Provided Precautions,Weight Bearing Status,Safety M7 PT-IP Assessment and Plan Start: 07/01/23 12:09 Freq: NEEDED Status: Active Protocol: Document 07/01/23 10:40 AB (Rec: 07/01/23 12:24 AB [id number]) PT Summary Assessment and Plan Potential Rehabilitation Potential Fair Status of Condition at Evaluation Evolving Summary Impairments Pain,ROM,Strength,Balance, Coordination,Sensation,Tone, Cognition,Bed Mobility, Transfers,Gait,Activity Tolerance Assessment Summary pt is a 72 y/o F s/p L2-3 TLIF POD 1. pt has back precautions. pt requiring max A x 1-2 for sit to stand and max A for ambulation using FWW and only tolerated 5 ft of ambulation. pt will require 24/7 assist at home and will benefit from SNF rehab at this time. will continue to assess progress. Goals Transfer Goal Standby Assistance,Front Wheeled Walker Gait Goal Standby Assistance,Front Wheel Walker Gait Distance 200 Other Goals improve transfers and ambualtion using LRAD ~ 250 ft SBA up/down 1 step using FWW SBA Days to Meet Goals 10 Frequency of Treatment Frequency Of Treatment Twice a Day Treatment Plan Physical Therapy Treatment Plan Bed Mobility Training,Transfer Training,Gait Training, Therapeutic Exercise,Balance Retraining,Post Op Education, Discharge Planning,Hot or Cold Pack,Neuromuscular Re-ed, Coordination Retraining,Manual Therapy Precautions Lumbar Precautions Log Roll,No Twisting,Limit Bending,Lifting Restriction of 10 lbs,Gait Belt above Incisional Area Recommendations To Nursing Amount of Assist Needed 2 Person Assist Discharge Recommendations PT Discharge Recommendations SNF Rehab Transportation Needs at Discharge Wheelchair/Cabulance
[2023-07-01] MEDS: hydrOXYzine HCL 25 MG TABLET PO ×2 (11:03→15:18)
--- NOTE | 2023-07-01 14:00 | PT.IPTN ---
Current Diagnoses Other intervertebral disc displacement, lumbar region (06/30/23) Postlaminectomy syndrome, not elsewhere classified (06/30/23) Surgery Performed Operation Date: 06/30/23 09:45 Actual Procedures p L2-3 TLIF-Robot - Celeste Crandall MD Physical Therapy Treatment Note M2 PT-IP Current Condition Start: 07/01/23 12:09 Freq: NEEDED Status: Active Protocol: Document 07/01/23 10:40 AB (Rec: 07/01/23 12:24 AB [id number]) Physical Therapy Current Condition Current Condition Evaluation Date 07/01/23 Treatment Diagnosis s/p L2-3 TLIF; difficulty in walking Onset Date 06/30/23 M3 PT-IP Subjective Start: 07/01/23 12:09 Freq: NEEDED Status: Active Protocol: Document 07/01/23 14:00 AB (Rec: 07/01/23 15:54 AB [id number]) Subjective Physical Therapy Visit Type Type Treatment Note Visit Start Time 14:00 Visit Stop Time 14:40 Number of SLITTER AND CUTTER OPERATOR Visits 0 Physical Therapy Visit Comments Patient Comments agreeable to do PT Therapy Pain Assessment Pain When Pain Assessed At Rest Pain Present Pain Present Pain Reported Location back Intensity 2 Scale Used Numeric (0 - 10) Pain Management Techniques Distraction,Modification of Treatment,Re-positioning, Timing of Activity with Medications M4 PT-IP Mobility and Gait Start: 07/01/23 12:09 Freq: NEEDED Status: Active Protocol: Document 07/01/23 14:00 AB (Rec: 07/01/23 15:54 AB [id number]) PT-Bed Mobility Assessment Rolling Type of Rolling Log Rolling Level of Assist Minimal Assistance Supine to Sit Supine to Sit Minimal Assistance Sit to Supine Sit to Supine Maximum Assistance PT-Transfer Assessment Sit to and From Stand Sit to and from Stand Contact Guard Assistance,1 Person Assistance,Use of Upper Extremities Equipment Transfer Assistive Device Gait Belt,Front Wheeled Walker Orthotic/Prosthetic Devices or Brace: No Comments Mobility Comments pt supine in bed and agreeable to do PT. pt already half sidelying on her L side and completed sitting up with min A. pt completed sit to stand from EOB CGA and ambulated in room using FWW CGA ~ 40 ft. pt sat on EOB. agreed to do stairs. educated on stair climbing techniques. pt completed sit to stand from EOB CGA and ambulated towards the platform step. pt completed up/down platform step using FWW CGA and cues. pt ambulated back to her room and sat on EOB. requested to just lay back in bed. completed sit to supine log roll max A and cues. positioned pt in bed. call light and table placed within reach. Gait Assessment Gait Gait Assistance Required: Contact Guard Assist,1 Person Assist Distance (Feet) 40 Able to Maintain Weight Bearing Status Yes During Gait Assistive Devices Assistive Device Gait Belt,Front Wheeled Walker Orthotic/Prosthetic Devices or Brace: No Gait Deviations General Gait Pattern Decreased Stride Length, Decreased Feet Clearance Factors Limiting Gait Function Factors Limiting Gait Function Decreased Activity Tolerance, Decreased Strength,Limited Range of Motion,Pain,Poor Balance,Poor Safety Awareness Stair Climbing Assessment Evaluation Level of Assist On Stairs Contact Guard Assistance Devices Stair Climbing Assistive Devices Front Wheel Walker Technique/Endurance Stair Climbing Direction Ascend and Descend Stair Climbing Technique Step to Step Number of Steps Climbed 1 Stair Climbing Set # Repetitions (reps) 2 M5 PT-IP Objective Assessments Start: 07/01/23 12:09 Freq: NEEDED Status: Active Protocol: Document 07/01/23 10:40 AB (Rec: 07/01/23 12:24 AB [id number]) Orientation Orientation/Cognition Level of Alertness Alert Orientation Name,Place,Situation Language Function Ability No Deficits Noted Safety Awareness Decreased Safety Awareness Memory Description No Deficits Noted Gross Range of Motion Lower Extremity ROM Assessment Within Functional Limits Strength Lower Extremity Strength Assessment Bilaterally Impaired Comments Strength Comments LLE: 3+/5 RLE: 4-/5 Coordination Assessment Gross Coordination Gross Coordination WNL Muscle Tone Muscle Tone WNL Yes M6 PT-IP Treatment Start: 07/01/23 12:09 Freq: NEEDED Status: Active Protocol: Document 07/01/23 14:00 AB (Rec: 07/01/23 15:54 AB [id number]) Physical Therapy Treatment Education Education Provided Precautions,Safety M7 PT-IP Assessment and Plan Start: 07/01/23 12:09 Freq: NEEDED Status: Active Protocol: Document 07/01/23 14:00 AB (Rec: 07/01/23 15:54 AB [id number]) PT Summary Assessment and Plan Potential Rehabilitation Potential Fair Summary Impairments Pain,ROM,Strength,Balance, Coordination,Sensation,Tone, Cognition,Bed Mobility, Transfers,Gait,Activity Tolerance Progress Towards Goals Slow Progress due to Pain,Slow Progress due to Activity Tolerance Assessment Summary pt progressing in mobility and ambulated to ambulate this afternoon ~ 40 ft using fWW CGA. pt also was able to completed stair climbing using FWW CGA and cues. caregiver training set up for tomorrow at 1030 am. will continue to assess progress. Goals Transfer Goal Standby Assistance,Front Wheeled Walker Gait Goal Standby Assistance,Front Wheel Walker Gait Distance 200 Other Goals improve transfers and ambualtion using LRAD ~ 250 ft SBA up/down 1 step using FWW SBA Days to Meet Goals 10 Frequency of Treatment Frequency Of Treatment Twice a Day Treatment Plan Physical Therapy Treatment Plan Bed Mobility Training,Transfer Training,Gait Training, Therapeutic Exercise,Balance Retraining,Post Op Education, Discharge Planning,Hot or Cold Pack,Neuromuscular Re-ed, Coordination Retraining,Manual Therapy Other Recommendations and Next Treatment caregiver training 07/01 @ [facility] 1030am Precautions Lumbar Precautions Log Roll,No Twisting,Limit Bending,Lifting Restriction of 10 lbs,Gait Belt above Incisional Area Recommendations To Nursing Amount of Assist Needed 1 Person Assist Discharge Recommendations PT Discharge Recommendations Home with Assistance,Home Health Transportation Needs at Discharge Private Vehicle
--- NOTE | 2023-07-01 14:56 | CM.DANOTE ---
DCP Assessment Note Pt is a 72yo F here following TLIF with Dr. Crandall on 06/30/23. PCP Clare Macias Payer out of state [employer] and Medicare Part A only. HAND TAPPER reviewed EMR. Per ortho PA note, pt continues to have a fair amount of pain, anticipate dc tomorrow. OT rec home with assistance. PT eval pending. HAND TAPPER entered room and introduced self and role. pt resting in chair, accompanied by spouse Ahmet ([phone]). Pt and spouse live in [place]. Pt indept at baseline, has access to multiple canes/walkers/wheelchairs/grab bars/sock grabbers from spouses history of multiple hip surgeries. Pt reports wanting to stay one more night due to pain. Spouse reports limited ability to assist pt due to his own mobility concerns. pt reports hx of V[facility]a [place] and does not want to return for rehab. Pt has 100 or so ft to get from car to bedroom with two small steps into the house, report there is no one else that can assist her into the home. Pt hopeful that after another day of rest, she will be able to ambulate enough to get from car to home with minimal assistance from spouse. Pt and spouse deny other CM needs at this time. Plan: anticipate home tomorrow with spouse support, transport in POV. CM team will continue to follow closely for any DCP needs that arise. JADIEL Ojeda Discharge Planning/Care Management CM Discharge Assessment Start: 07/01/23 14:52 Freq: Status: Active Protocol: Document 07/01/23 14:52 (Rec: 07/01/23 14:56 [id number]) Discharge Planning Assessment Assigned Welt Trimming Machine Operator JADIEL Centeno DPOA/Assigned Designee Name Ahmet spouse Contact Information [phone] Advance Directives? No History Provided By Patient,Medical Record Prior Living Arrangements House Household Members spouse Independent with ADL's Yes Is patient alert and oriented? Yes DME Already Rented / Owned Wheelchair,FWW / Walker,Cane, Other Barriers to Discharge No Discharge Plan Home Transportation Arrangement spouse in POV Whiteboard Updated in Patient Room with Yes name and ext. # of Welt Trimming Machine Operator Review Status In Process Please Provide Date Initial DC 07/01/23 Assessment Was Performed Next Review Type Continued Stay Review Pre-Anesthesia Assessment Start: 06/24/23 13:50 Freq: Status: Active Protocol: Document 06/24/23 13:50 CAB (Rec: 06/24/23 14:51 CAB [id number]) Pre-Anesthesia Assessment Patient Information Reviewed Via Phone Assessment Diagnostic Results BMP/CMP,CBC,EKG Comment Outside labs/EKG scanned Primary Care Provider Clare Macias Comment Cardiac eval w/PCP 06/10/23 scanned and in surgery folder Seen Specialist in Last 12 Months Yes Specialist Seen Oncologist,Orthopedist,Other Comment Neurology Primary Language Lao Stamp Pad Maker Required No Height 162.56 cm Weight 79.379 kg Body Mass Index (BMI) 30.0 Hearing Ability Normal Visual Assist Glasses Dentition Type Teeth, Natural Present Barriers to Learning None Hx Anesthesia Reactions No Hx Family Anesthesia Reaction No Hx Malignant Hyperthermia No Hx Blood Transfusions No Anesthesia Review Requested Yes: PAC-PCP is deferring to surgical or anesthesia for cardiac clearance Sheet Metal Worker Supervisor No alcohol intake current alcohol intake frequency a few times a month Smoking Status Former smoker how long ago did patient quit smoking Quit 45 years ago Substance Use Type does not use Pain Present Pain Reported Musculoskeletal Symptoms Abnormal Gait,Back Pain, Difficulty Walking,Radiating Pain into Limb History of Falling (Recent or History of No ) Patient is completely paralyzed or No completely immobile Prosthesis or Orthotic Device Cane Mental Status Oriented to own ability Is patient on oxygen? No Does patient have CLIFTON/SOB No Hx Sleep Apnea No Currently Taking a Beta [place] No Can You Climb a Flight of Stairs Without Yes SOB Hx Chest Pain No Hx SOB No Hx Syncope or Dizziness Yes Anti-Coagulant Therapy No Has a R Programmer No: Last cardiac visit 08/09/21 Cardiac Testing No Hx Pacemaker/ICD No Pacemaker Rep Required? No Cardiac Clearance Received No Comment Cardiac records scanned and in surgery folder Diet Type At Home Regular Dysphagia No Gastrointestinal Symptoms Constipation,Diarrhea Chronic UTI No Urinary Catheter Present No Hx Urinary Self Catheterization No Diabetes No HgbA1C 5.1 Date 05/27/23 Patient No Lactating No Presence of External or Internal Medical Yes: Speedy eye IOLs Devices Received a COVID vaccine? Yes Received all doses? Yes Marital Status Lives With spouse Current Living Arrangements House Number of Floors (Floors) One Floor Support System Spouse Does the Patient Have Assistance After Yes Surgery Patient Discharge Plan Description Return Home Comment Pt advised overnight length of stay per surgeon Feels Safe in Current Environment Yes Been Physically Hurt or Threatened By a No Person in Current Environment Do you have thoughts of harming yourself None or others? Are you currently considering suicide? No Do you have a plan to hurt yourself or No Plan others? Do You Have Any Spiritual Beliefs That No May Affect Your HC Choices? Do You Have Any Cultural Practices That No May Affect Your HC Choices? Who Can We Speak to About Patient's Care Family, friends Identifying Code for Release of Patient Declines to issue Information Health Care Proxy/Next of Kin Ahmet () Health Care Proxy Emergency Contact Name Arsenio (daughter) Emergency Contact Advance Directives? No Power of Glass Loading Equipment Tender No PAC Instructions Durable medical equipment, Medications to take/avoid, Nasal antibiotic,No ETOH/ petroleum product on skin DOS, NPO,Post-op transportation,Pre -surgical wash,Sensory aids, Sturdy shoes/comfortable clothes,Do not bring valuables and remove jewelry
[2023-07-01] MEDS: HYDROCODONE/ACET 10/325 TABLET 1 TAB PO (15:17)
[2023-07-01] MEDS: VERAPAMIL 80 MG TABLET PO ×2 (15:18→20:01)
[2023-07-01] MEDS: HYDROCODONE/ACET 5/325 TABLET 1 TAB PO (20:00)
[2023-07-01] MEDS: SENNOSIDES 8.6 MG TABLET 17.2 MG PO (20:00)
[2023-07-01] MEDS: lisinopriL 20 MG TABLET 40 MG PO (20:01)
[2023-07-02] VITALS (9 sets, daily range): BP systolic 130–183; BP diastolic 59–97; PULSE 72–87; RESP 17–20; TEMP 36.4–37.6; O2SAT 91–97
[2023-07-02] MEDS: HYDROCODONE/ACET 5/325 TABLET 1 TAB PO ×2 (02:09→05:59)
[2023-07-02] MEDS: hydrOXYzine HCL 25 MG TABLET PO ×4 (02:09→20:55)
[2023-07-02] MEDS: LEVOTHYROXINE 50 MCG TABLET 150 MCG PO (05:59)
--- NOTE | 2023-07-02 08:41 | P.PN_ITS ---
Subjective Subjective Interval history: Carolyn is a 72 year old female who is POD#2 s/p L2-3 Postero-lateral and posterior interbody fusion with cage placement and L2-3 decompressive laminectomy with bilateral facetecomies by Dr. Crandall. Today patient reports she is still in severe pain, worse than yesterday. She d enies any pain radiating down her legs, described the pain as an ache/muscle cramp. Muscle ache pain is not limited to low back she states it is her whole body. Endorses some left LE weakness which she states is not new or worse since surgery. Has been able to get up and walk to the bathroom with a walker to urinate, no issues urinating. Using a purewik at night. Was planning to d/c to home with today but states that her has had 3 hip surgeries of his own and will be limited in his ability to assist her at home and she still feel very weak and in a lot of pain. They have 2 steps into their house but 100 feet walk from car park to front door. PT also recommends d/c to home tomorrow likely. She expresses concerns that she has not had a BM since being in the hospital, she also complains of mild lower abdominal crampy pain. Denies fever, chills, chest pain, SOB, nausea, vomiting. + fatigue + muscle aches. Exam Vital Signs (past 8 hours): - 07/02/23 02:33 07/02/23 08:08 Temperature 98.0 F 98.2 F Pulse Rate 75 72 Respiratory Rate 17 18 Blood Pressure 150/69 H 130/66 Pulse Oximetry 96 91 Oxygen Flow Rate 0 Oxygen Delivery Method Room Air Oxygen Flow Rate 0 Narrative Exam Narrative: Lying in bed comfortably during our interview today. She was able to sit up and begin eating breakfast at the end of our discussion today. Resp Effort & Inspection: normal respiratory effort and able to speak in complete sentences Cardio Rate: regular rate Other: Brisk capillary refill. GI Other: No epigastric, LUQ or RUQ abdominal pain. Generalized lower abdominal pain with palpation, no rebound tenderness. No abdominal mass palpated. No gaurding. Back/Spine/Pelvis Other: Dressings intact, clean and dry. Neuro General: patient alert, patient awake and patient oriented x3 Extrem Other: LEFT: 5/5 strength with EHL. 4/5 PF, 3/5 DF. She states this is unchanged from prior to surgery. RIGHT: 5/5 strength with EHL, DL, PF. Gross sensation intact throughout bilateral lower extremities. Calves soft and non-tender. [facility] Medical History History of COVID-19 (~2021) IBS (irritable bowel syndrome) Breast cancer (2021) Syncope History of viral meningitis Migraines Vertigo Nerve pain Osteoporosis Hypothyroidism HTN (hypertension) Lumbar disc herniation Lumbar post-laminectomy syndrome Chronic low back pain SVT (supraventricular tachycardia) NSVT (nonsustained ventricular tachycardia) Surgical History Hx of hemorrhoidectomy Hx of colonoscopy Hx of arthroscopy of left knee History of lumpectomy of right breast (2021) Hx of bilateral cataract extraction Hx of tonsillectomy Hx of appendectomy Hx of shoulder surgery Hx of laminectomy (2005) Social History household members: spouse Smoking Status: Former smoker alcohol intake: current Assessment & Plan Post-op Postoperative Procedures: Procedures Operation Date: 06/30/23 09:45 Actual Procedure Side Surgeon p L2-3 TLIF-Robot Celeste Crandall MD Postoperative day: 2 Postoperative plan narrative: 1) Plan to discharge to home with tomorrow or later today if she progresses well with PT today. 2) Continue multimodal pain management. Discussed changing opioid medication to tramadol to help with constipation patient declines and feels tramadol does not work for her. 3) Mechanical DVT prophylaxis, SCDs to be worn and functioning well patient is lying in bed. 4) We will continue to monitor abdominal pain, suspect constipation, patient has multiple laxative and stool softeners ordered. Monitor for bowel movement we will consult if needed in the case of worsening and/or concerning features associated with the abdominal pain. 5) Keep dressing intact, clean, dry until 2 week postop appointment. No soaking the incision site in pools or tubs. No topical ointments or creams to the incision site. 6) Follow up at [facility] in 2 weeks for a postop appointment and wound check. 7) Activity restrictions: No lifting greater than 10 lb, twisting, deep bending. All patient's questions were answered, they demonstrates understanding and are in agreement with the plan. Call our office if any questions or concerns arise. Quality VTE Deep Vein Thrombosis/Pulmonary Embolism Present on Admission: No
[2023-07-02] MEDS: DOCUSATE 100 MG CAPSULE PO ×2 (09:24→20:54)
[2023-07-02] MEDS: PREGABALIN 50 MG CAPSULE 100 MG PO ×2 (09:24→20:54)
[2023-07-02] MEDS: ANASTROZOLE 1 MG TABLET PO (09:24)
[2023-07-02] MEDS: GABAPENTIN 600 MG TABLET PO ×3 (09:24→20:53)
[2023-07-02] MEDS: polyethylene glycoL 3350 17 GM POWD.PACK PO (09:24)
[2023-07-02] MEDS: HYDROCODONE/ACET 10/325 TABLET 1 TAB PO ×3 (10:28→20:54)
--- NOTE | 2023-07-02 10:40 | PT.IPTN ---
Current Diagnoses Other intervertebral disc displacement, lumbar region (06/30/23) Postlaminectomy syndrome, not elsewhere classified (06/30/23) Surgery Performed Operation Date: 06/30/23 09:45 Actual Procedures p L2-3 TLIF-Milad - Celeste Crandall MD Physical Therapy Treatment Note M2 PT-IP Current Condition Start: 07/01/23 12:09 Freq: NEEDED Status: Active Protocol: Document 07/01/23 10:40 AB (Rec: 07/01/23 12:24 AB [id number]) Physical Therapy Current Condition Current Condition Evaluation Date 07/01/23 Treatment Diagnosis s/p L2-3 TLIF; difficulty in walking Onset Date 06/30/23 M3 PT-IP Subjective Start: 07/01/23 12:09 Freq: NEEDED Status: Active Protocol: Document 07/02/23 10:40 AB (Rec: 07/02/23 12:41 AB [id number]) Subjective Physical Therapy Visit Type Type Treatment Note Visit Start Time 10:40 Visit Stop Time 11:20 Number of POT ROOM TAPPER Visits 0 Physical Therapy Visit Comments Patient Comments c/o more LBP pain Therapy Pain Assessment Pain When Pain Assessed At Rest Pain Present Pain Present Pain Reported Location back Scale Used pain scale not stated Pain Management Techniques Apply Cold,Distraction, Modification of Treatment,Re- positioning,Timing of Activity with Medications M4 PT-IP Mobility and Gait Start: 07/01/23 12:09 Freq: NEEDED Status: Active Protocol: Document 07/02/23 10:40 AB (Rec: 07/02/23 12:41 AB [id number]) PT-Bed Mobility Assessment Rolling Type of Rolling Log Rolling Level of Assist Maximal Assistance Supine to Sit Supine to Sit Maximum Assistance PT-Transfer Assessment Sit to and From Stand Sit to and from Stand Contact Guard Assistance, Minimal Assistance,1 Person Assistance,Use of Upper Extremities Equipment Transfer Assistive Device Gait Belt,Front Wheeled Walker Orthotic/Prosthetic Devices or Brace: No Transfers Transfer Destination Chair,Toilet Transfer Technique ambulated Transfer Ability Level of Assist Contact Guard Assistance,1 Person Assistance,Use of Upper Extremities Comments Mobility Comments pt supine in bed and c/o LBP. spouse in room with pt. spouse expresses concerns about pt going home. informed spouse that PT can do caregiver training for him to be able to see if he will be able to provide pt assistance or not. spouse stated that he can do the training but to assist pt at home is different . stated that if he has to get up 3 times at night to assist pt and that he will not be able to sleep and be exhausted the next day then, he will not be able to assist pt. pt agreed to just do PT tx and no caregiver training due to pt's spouse's concerns about taking pt home. pt completed supine to sit max A and max cues log roll. pt also c/o abdominal pain due to constipation per pt. pt completed sit to stand CGA and ambulated in room using FWW CGA ~ 30 ft. pt requested to use the toilet and ambulated to the toilet. pt completed sit to stand CGA from the toilet and ambulated to the chair using fWW CGA. pt told spouse that she can walk. spouse then agreed to do caregiver training. educated spouse on how to use safety belt and how to assist pt. spouse was able to put safety belt on pt. pt agreed to do stair climbing . spouse assisted pt with sit to stand min A with unsteady initial standing. instructed pt to sit back on chair. educated pt on sit<>stand techniques. pt completed sit to stand again and spouse assisting CGA. pt ambulated towards the platform step using fWW CGA. pt completed up /down platform step using FWW CGA. pt ambulated in the hallway using FWW ~ 30 ft CGA and completed up/down step again using FWW CGA. pt ambulated back to the room and sat on the chair. positioned pt on the chair. ice pack provided. call light and table placed within reach. informed pt's spouse that they can put a bedside commode next to pt's lift recliner for easier toileting at night. also informed pt and spouse that PT will inform heel caser regarding concerns about d/c. informed heel caser regarding pt's mobility and spouse concerns regarding assist pt. Gait Assessment Gait Gait Assistance Required: Contact Guard Assist Distance (Feet) 30 Able to Maintain Weight Bearing Status Yes During Gait Assistive Devices Assistive Device Gait Belt,Front Wheeled Walker Orthotic/Prosthetic Devices or Brace: No Gait Deviations General Gait Pattern Decreased Stride Length, Decreased Feet Clearance Factors Limiting Gait Function Factors Limiting Gait Function Decreased Activity Tolerance, Decreased Strength,Limited Range of Motion,Pain,Poor Balance,Poor Safety Awareness Stair Climbing Assessment Evaluation Level of Assist On Stairs Contact Guard Assistance Devices Stair Climbing Assistive Devices Front Wheel Walker Technique/Endurance Stair Climbing Direction Ascend and Descend Stair Climbing Technique Step to Step Number of Steps Climbed 1 Stair Climbing Set # Repetitions (reps) 2 M5 PT-IP Objective Assessments Start: 07/01/23 12:09 Freq: NEEDED Status: Active Protocol: Document 07/01/23 10:40 AB (Rec: 07/01/23 12:24 AB [id number]) Orientation Orientation/Cognition Level of Alertness Alert Orientation Name,Place,Situation Language Function Ability No Deficits Noted Safety Awareness Decreased Safety Awareness Memory Description No Deficits Noted Gross Range of Motion Lower Extremity ROM Assessment Within Functional Limits Strength Lower Extremity Strength Assessment Bilaterally Impaired Comments Strength Comments LLE: 3+/5 RLE: 4-/5 Coordination Assessment Gross Coordination Gross Coordination WNL Muscle Tone Muscle Tone WNL Yes M6 PT-IP Treatment Start: 07/01/23 12:09 Freq: NEEDED Status: Active Protocol: Document 07/02/23 10:40 AB (Rec: 07/02/23 12:41 AB [id number]) Physical Therapy Treatment Education Education Provided Precautions,Weight Bearing Status,Post-Op Packet,Safety M7 PT-IP Assessment and Plan Start: 07/01/23 12:09 Freq: NEEDED Status: Active Protocol: Document 07/02/23 10:40 AB (Rec: 07/02/23 12:41 AB [id number]) PT Summary Assessment and Plan Potential Rehabilitation Potential Fair Summary Impairments Pain,ROM,Strength,Balance, Coordination,Sensation,Tone, Cognition,Bed Mobility, Transfers,Gait,Activity Tolerance Progress Towards Goals Slow Progress due to Pain Assessment Summary pt requiring max A with bed mobility log roll but pt will be using her lift recliner to sleep on at home. pt requires CGA to min A for sit to stand and CGA for transfers and ambulation using FWW. caregiver training conducted and spouse was able to assist pt but spouse has concerns regarding pt going home. case manger informed. will continue to assess progress. Goals Transfer Goal Standby Assistance,Front Wheeled Walker Gait Goal Standby Assistance,Front Wheel Walker Gait Distance 200 Other Goals improve transfers and ambualtion using LRAD ~ 250 ft SBA up/down 1 step using FWW SBA Days to Meet Goals 10 Frequency of Treatment Frequency Of Treatment Twice a Day Treatment Plan Physical Therapy Treatment Plan Bed Mobility Training,Transfer Training,Gait Training, Therapeutic Exercise,Balance Retraining,Post Op Education, Discharge Planning,Hot or Cold Pack,Neuromuscular Re-ed, Coordination Retraining,Manual Therapy Precautions Lumbar Precautions Log Roll,No Twisting,Limit Bending,Lifting Restriction of 10 lbs,Gait Belt above Incisional Area Recommendations To Nursing Amount of Assist Needed 1 Person Assist Discharge Recommendations PT Discharge Recommendations Home with Assistance,Home Health
--- NOTE | 2023-07-02 12:00 | OT.IP.TRT ---
Current Diagnoses Other intervertebral disc displacement, lumbar region (06/30/23) Postlaminectomy syndrome, not elsewhere classified (06/30/23) Surgery Performed Operation Date: 06/30/23 09:45 Actual Procedures p L2-3 TLIF-Robot - Celeste Crandall MD Occupational Therapy Treatment Note M2 OT-IP Current Condition Start: 07/01/23 10:17 Freq: Status: Active Protocol: Document 07/01/23 10:17 [facility] (Rec: 07/01/23 10:37 [facility] [id number]) Occupational Therapy Current Condition Current Condition Evaluation Date 07/01/23 Treatment Diagnosis S/P L2-3 TLIF Diagnosis Onset Date 06/30/23 Post Operative Precautions Lumbar Precautions Log Roll,No Twisting,Limit Bending,Lifting Restriction of 10 lbs,Gait Belt above Incisional Area M3 OT- IP Subjective and Pain Start: 07/01/23 10:17 Freq: Status: Active Protocol: Document 07/02/23 11:54 [facility] (Rec: 07/02/23 12:00 [facility] [id number]) OT- Subjective Occupational Therapy Visit Type Type Treatment Note Visit Start Time 11:22 Visit Stop Time 11:52 Occupational Therapy Visit Comments Patient Comments Pt and in the room. Patient/Caregiver Goals To go home. OT Pain Assessment Pain When Pain Assessed At Rest Pain Present Pain Present Pain Reported Location back Intensity 1 Scale Used Numeric (0 - 10) M4 OT- IP ADL's Start: 07/01/23 10:17 Freq: Status: Active Protocol: Document 07/02/23 11:54 [facility] (Rec: 07/02/23 12:00 [facility] [id number]) OT [id number] General Evaluation Self-Feeding Ability Independent OT ADL-Grooming Comments OT Grooming Comments Pt states to do after lunch. OT ADL-Oral Care Comments Oral Care Comments Pt to do after lunch. Educated pt if standing best to hinge at her hips or just spit into a cup to best follow her back precautions. OT ADL-Dressing Comments OT Dressing Comments Pt states not wanting to practice. OT ADL-Toileting Comments OT Toileting Comments Spoke and able to try use of toilet paper aid while standing to be able to best reach and wipe appropriately with wipes. Pt looking to order one for home use in addition thinking about getting a bidet. OT ADL-Bathing Comments OT Bathing Comments Pt tired from just having PT earlier and states wanting to shower tomorrow. M5 OT- IP IADL's Start: 07/01/23 10:17 Freq: Status: Active Protocol: Document 07/01/23 10:17 [facility] (Rec: 07/01/23 10:37 [facility] [id number]) OT-Instrumental Activities of Daily Living Deficits IADL Deficits Identified Deficits Home Safety Awareness Awareness of Need for Assistance at Home Good Awareness Ability to Problem Solve Emergency Able to Problem Solve Situations Home Safety Comments Pt's to provide supervision as needed. Medication Management Medication Management No Deficits Identified Money Management Money Management No Deficits Identified Mobile Lab Technician Mobile Lab Technician Caregiver Provides Assist M6 OT- IP Functional Cognition Start: 07/01/23 10:17 Freq: Status: Active Protocol: Document 07/02/23 11:54 [facility] (Rec: 07/02/23 12:00 [facility] [id number]) Cognitive Factors Limiting Selfcare Function Cognitive Comments Cognitive Assessment Comments Intact M7 OT- IP Mobility and Balance Start: 07/01/23 10:17 Freq: Status: Active Protocol: Document 07/02/23 11:54 [facility] (Rec: 07/02/23 12:00 [facility] [id number]) OT-Transfer Assessment Sit to and From Stand Sit to and from Stand Standby Assistance Comments Mobility Comments SBA to stand. Pt states just will end up sleeping in her lift chair initially. OT- Balance Assessment Sitting Balance and Reactions Static Sitting Balance Ability Good Dynamic Sitting Balance Ability Good Standing Balance and Reactions Static Standing Balance Ability Good M8 OT- IP Objective Assessments Start: 07/01/23 10:17 Freq: Status: Active Protocol: Document 07/01/23 10:17 [facility] (Rec: 07/01/23 10:37 [facility] [id number]) OT Gross Range of Motion Upper Extremity Range of Motion Assessment Within Functional Limits OT Strength Upper Extremity Strength Assessment Within Functional Limits M9 OT- IP Assessment and Plan Start: 07/01/23 10:17 Freq: Status: Active Protocol: Document 07/02/23 11:54 [facility] (Rec: 07/02/23 12:00 [facility] [id number]) OT Summary Assessment and Plan Potential Rehabilitation Potential Good Analytic Complexity at Evaluation Low Summary OT Impairments Pain,Strength,Balance, Functional Mobility,Grooming, Dressing,Toileting,Bathing, Toilet Transfers,Shower Transfers,Activity Tolerance Progress Towards Goals Progressing Toward Goals Assessment Summary Pt doing better today overall with ADl and mobility needs. Educated pt on toileting needs and pt to order a toilet paper aid to assist at home with use of wet wipes. Pt concerned that she has not had a bowel movement yet. Pt wanting to do a shower for caregiver training tomorrow. Goals Grooming Goal Independent Dressing Goal Independent Toileting Goal Independent Bathing Goal Standby Assistance Toilet Transfer Goal Independent Shower Transfer Goal Standby Assistance Days to Meet Goals 3 Frequency of Treatment Frequency Of Treatment Once a Day Treatment Plan OT Treatment Plan ADL Training,Functional Mobility,Patient/Family Education,Discharge Planning Other Treatment Recommendations and Next Shower Treatment Focus Discharge Recommendations OT Discharge Recommendations Home with Assistance Transportation Needs at Discharge Private Vehicle
--- NOTE | 2023-07-02 13:28 | CM.DPNOTE ---
DCP Cont Reviewed chart. Patient discussed in multidisciplinary rounds. Patient complaining of significant pain today and will likely stay another night; discharge home w/spouse expected tomorrow. Plan remains discharge home w/family w/close outpatient follow up. PT Brittney reports patient is cleared for home today. CM team following clinical course closely in case any discharge needs or concerns arise. JW
--- NOTE | 2023-07-02 14:31 | PT.IPTN ---
Current Diagnoses Other intervertebral disc displacement, lumbar region (06/30/23) Postlaminectomy syndrome, not elsewhere classified (06/30/23) Surgery Performed Operation Date: 06/30/23 09:45 Actual Procedures p L2-3 TLIF-Robot - Celeste Crandall MD Physical Therapy Treatment Note M2 PT-IP Current Condition Start: 07/01/23 12:09 Freq: NEEDED Status: Active Protocol: Document 07/01/23 10:40 AB (Rec: 07/01/23 12:24 AB [id number]) Physical Therapy Current Condition Current Condition Evaluation Date 07/01/23 Treatment Diagnosis s/p L2-3 TLIF; difficulty in walking Onset Date 06/30/23 M3 PT-IP Subjective Start: 07/01/23 12:09 Freq: NEEDED Status: Active Protocol: Document 07/02/23 15:02 TS (Rec: 07/02/23 15:11 TS [id number]) Subjective Physical Therapy Visit Type Type Treatment Note Visit Start Time 14:31 Visit Stop Time 14:59 Number of TIRE BLADDER MAKER Visits 1 Physical Therapy Visit Comments Patient Comments Pt found resting in bed, is agreeable to PT. Therapy Pain Assessment Pain When Pain Assessed At Rest Pain Present Pain Present Pain Reported M4 PT-IP Mobility and Gait Start: 07/01/23 12:09 Freq: NEEDED Status: Active Protocol: Document 07/02/23 15:02 TS (Rec: 07/02/23 15:11 TS [id number]) PT-Bed Mobility Assessment Rolling Type of Rolling Log Rolling Level of Assist Moderate Assistance Supine to Sit Supine to Sit Maximum Assistance Sit to Supine Sit to Supine Minimal Assistance,1 Person Assistance PT-Transfer Assessment Sit to and From Stand Sit to and from Stand Standby Assistance Equipment Transfer Assistive Device Gait Belt,Front Wheeled Walker Orthotic/Prosthetic Devices or Brace: No Comments Mobility Comments Pt recalled 2/3 spinal precautions(no lifting). Logroll to L side ModA with cues for sequencing. Supine to sit MaxA for uprighting trunk , pt required max cues. STS from bed SBA with FWW. Pt ambulated ~125' SBA with slow step thru gait. Pt ambulated back to room, sit to supine into bed Raisa for LE's. Pt was left bed all needs met. Gait Assessment Gait Gait Assistance Required: Standby Assistance Distance (Feet) 125 Able to Maintain Weight Bearing Status Yes During Gait Assistive Devices Assistive Device Gait Belt,Front Wheeled Walker Orthotic/Prosthetic Devices or Brace: No Gait Deviations General Gait Pattern Decreased Stride Length, Decreased Feet Clearance Factors Limiting Gait Function Factors Limiting Gait Function Decreased Activity Tolerance, Decreased Strength,Limited Range of Motion,Pain,Poor Balance,Poor Safety Awareness PT-Balance Assessment Sitting Balance and Reactions Static Sitting Balance Ability Good Dynamic Sitting Balance Ability Fair Standing Balance and Reactions Static Standing Balance Ability Good Dynamic Standing Balance Ability Good Device Used FWW M5 PT-IP Objective Assessments Start: 07/01/23 12:09 Freq: NEEDED Status: Active Protocol: Document 07/01/23 10:40 AB (Rec: 07/01/23 12:24 AB [id number]) Orientation Orientation/Cognition Level of Alertness Alert Orientation Name,Place,Situation Language Function Ability No Deficits Noted Safety Awareness Decreased Safety Awareness Memory Description No Deficits Noted Gross Range of Motion Lower Extremity ROM Assessment Within Functional Limits Strength Lower Extremity Strength Assessment Bilaterally Impaired Comments Strength Comments LLE: 3+/5 RLE: 4-/5 Coordination Assessment Gross Coordination Gross Coordination WNL Muscle Tone Muscle Tone WNL Yes M6 PT-IP Treatment Start: 07/01/23 12:09 Freq: NEEDED Status: Active Protocol: Document 07/02/23 15:02 TS (Rec: 07/02/23 15:11 TS [id number]) Physical Therapy Treatment Education Education Provided Precautions,Weight Bearing Status,Post-Op Packet,Safety M7 PT-IP Assessment and Plan Start: 07/01/23 12:09 Freq: NEEDED Status: Active Protocol: Document 07/02/23 15:02 TS (Rec: 07/02/23 15:11 TS [id number]) PT Summary Assessment and Plan Potential Rehabilitation Potential Fair Summary Impairments Pain,ROM,Strength,Balance, Coordination,Sensation,Tone, Cognition,Bed Mobility, Transfers,Gait,Activity Tolerance Progress Towards Goals Progressing Toward Goals Assessment Summary Carolyn is making progress with her mobility but is limited by pain. She requires assist with bed mobility and c/o increasing pain limiting her. She is SBA for STS and for gait ~125' with FWW. She denied any lightheadedness, SOB or thermal changes. PT is recommending home with 09/09 assist. Goals Transfer Goal Standby Assistance,Front Wheeled Walker Gait Goal Standby Assistance,Front Wheel Walker Gait Distance 200 Other Goals improve transfers and ambualtion using LRAD ~ 250 ft SBA up/down 1 step using FWW SBA Days to Meet Goals 10 Frequency of Treatment Frequency Of Treatment Twice a Day Treatment Plan Physical Therapy Treatment Plan Bed Mobility Training,Transfer Training,Gait Training, Therapeutic Exercise,Balance Retraining,Post Op Education, Discharge Planning,Hot or Cold Pack,Neuromuscular Re-ed, Coordination Retraining,Manual Therapy Precautions Lumbar Precautions Log Roll,No Twisting,Limit Bending,Lifting Restriction of 10 lbs,Gait Belt above Incisional Area Recommendations To Nursing Amount of Assist Needed 1 Person Assist Discharge Recommendations PT Discharge Recommendations Home with Assistance,Home Health Transportation Needs at Discharge Private Vehicle
[2023-07-02] MEDS: VERAPAMIL 80 MG TABLET PO ×2 (14:47→20:55)
[2023-07-02] MEDS: lisinopriL 20 MG TABLET 40 MG PO (20:54)
[2023-07-02] MEDS: SENNOSIDES 8.6 MG TABLET 17.2 MG PO (20:54)
[2023-07-03] VITALS (7 sets, daily range): BP systolic 136–184; BP diastolic 62–90; PULSE 74–87; RESP 16–18; TEMP 36.8–37.3; O2SAT 94–96
[2023-07-03] MEDS: HYDROCODONE/ACET 10/325 TABLET 1 TAB PO ×2 (02:08→06:02)
[2023-07-03] MEDS: LEVOTHYROXINE 50 MCG TABLET 150 MCG PO (06:02)
--- NOTE | 2023-07-03 07:15 | P.PN_ITS ---
Subjective Subjective Date Patient Seen: 07/03/23 Time Patient Seen: 07:16 Interval history: Patient is found lying in bed. She states that if she gets up and moves around she feels better but lying in bed causes her to have back pain. He also has a complaint of stomach cramping. Her pain has been controlled with oral medications. She is is reluctant to go home but also states she does not want to go to a rehabilitation facility. Denies any new numbness or tingling into her feet. She has pre-existing weakness in her left foot. Exam Vital Signs (past 8 hours): - 07/03/23 04:00 Temperature 98.6 F Pulse Rate 74 Respiratory Rate 17 Blood Pressure 146/80 H Pulse Oximetry 96 Oxygen Flow Rate 0 Oxygen Delivery Method Room Air Oxygen Flow Rate 0 Narrative Exam Narrative: Abdomen: No increase in pain to palpation throughout all 4 quadrants. Lower extremities LEFT: 5/5 strength with EHL. 4/5 PF, 3/5 DF. She states she had weakness in left leg prior to surgery. RIGHT: 5/5 strength with EHL, DL, PF. [facility] Medical History History of COVID-19 (~2021) IBS (irritable bowel syndrome) Breast cancer (2021) Syncope History of viral meningitis Migraines Vertigo Nerve pain Osteoporosis Hypothyroidism HTN (hypertension) Lumbar disc herniation Lumbar post-laminectomy syndrome Chronic low back pain SVT (supraventricular tachycardia) NSVT (nonsustained ventricular tachycardia) Surgical History Hx of hemorrhoidectomy Hx of colonoscopy Hx of arthroscopy of left knee History of lumpectomy of right breast (2021) Hx of bilateral cataract extraction Hx of tonsillectomy Hx of appendectomy Hx of shoulder surgery Hx of laminectomy (2005) Social History household members: spouse Smoking Status: Former smoker alcohol intake: current Assessment & Plan Post-op Postoperative Procedures: Procedures Operation Date: 06/30/23 09:45 Actual Procedure Side Surgeon p L2-3 TLIF-Robot Celeste Crandall MD Postoperative day: 3 Postoperative plan narrative: X-ray KUB performed and negative for ileus. Multi-modal pain control. Continue PT. The more the patient is up and moving, the better she feels. Planned to go home today, but had to work up abdominal pain and awaited BM. BM finally occured in pm. Plan to go home tomorrow with H&H per CM. Quality VTE Deep Vein Thrombosis/Pulmonary Embolism Present on Admission: No
[2023-07-03] MEDS: PREGABALIN 50 MG CAPSULE 100 MG PO ×2 (08:53→20:37)
[2023-07-03] MEDS: GABAPENTIN 600 MG TABLET PO ×3 (08:53→20:43)
[2023-07-03] MEDS: DOCUSATE 100 MG CAPSULE PO ×2 (08:53→20:37)
[2023-07-03] MEDS: HYDROCODONE/ACET 5/325 TABLET 1 TAB PO ×3 (08:54→18:56)
[2023-07-03] MEDS: ANASTROZOLE 1 MG TABLET PO (08:54)
[2023-07-03] MEDS: polyethylene glycoL 3350 17 GM POWD.PACK PO (08:54)
--- NOTE | 2023-07-03 10:20 | PT.IPTN ---
Current Diagnoses Other intervertebral disc displacement, lumbar region (06/30/23) Postlaminectomy syndrome, not elsewhere classified (06/30/23) Surgery Performed Operation Date: 06/30/23 09:45 Actual Procedures p L2-3 TLIF-Robot - Celeste Crandall MD Physical Therapy Treatment Note M2 PT-IP Current Condition Start: 07/01/23 12:09 Freq: NEEDED Status: Active Protocol: Document 07/01/23 10:40 AB (Rec: 07/01/23 12:24 AB [id number]) Physical Therapy Current Condition Current Condition Evaluation Date 07/01/23 Treatment Diagnosis s/p L2-3 TLIF; difficulty in walking Onset Date 06/30/23 M3 PT-IP Subjective Start: 07/01/23 12:09 Freq: NEEDED Status: Active Protocol: Document 07/03/23 11:15 TS (Rec: 07/03/23 11:27 TS [id number]) Subjective Physical Therapy Visit Type Type Treatment Note Visit Start Time 10:20 Visit Stop Time 11:13 Number of TELEPHONE SOLICITOR SUPERVISOR Visits 2 Physical Therapy Visit Comments Patient Comments Pt and spouse having long discussion about d/c plan. Spouse is concerned about pt not having bowel movements and does not feel like he can assist her at home and would like her to go to a rehab. Pt wants to go home with caregivers. At one point spouse becomes frustrated and leaves room. Pt is tearful, spouse eventually returns to work with therapy. Therapy Pain Assessment Pain When Pain Assessed At Rest Pain Present Pain Present Pain Reported Location back Intensity 2 M4 PT-IP Mobility and Gait Start: 07/01/23 12:09 Freq: NEEDED Status: Active Protocol: Document 07/03/23 11:15 TS (Rec: 07/03/23 11:27 TS [id number]) PT-Bed Mobility Assessment Rolling Type of Rolling Log Rolling Level of Assist Standby Assistance Supine to Sit Supine to Sit Contact Guard Assistance,1 Person Assistance Scooting Scooting to Edge of Bed Standby Assistance PT-Transfer Assessment Sit to and From Stand Sit to and from Stand Standby Assistance Equipment Transfer Assistive Device Gait Belt,Front Wheeled Walker Orthotic/Prosthetic Devices or Brace: No Comments Mobility Comments Logroll to L side SBA. Supine to sit CGA with no cues. STS from bed SBA with FWW. Pt ambulated ~225 SBA with FWW with no fatigue. Pt was left back in chair, RN notified. Gait Assessment Gait Gait Assistance Required: Standby Assistance Distance (Feet) 225 Able to Maintain Weight Bearing Status Yes During Gait Assistive Devices Assistive Device Gait Belt,Front Wheeled Walker Orthotic/Prosthetic Devices or Brace: No Gait Deviations General Gait Pattern Decreased Stride Length, Decreased Feet Clearance Factors Limiting Gait Function Factors Limiting Gait Function Decreased Activity Tolerance, Decreased Strength,Limited Range of Motion,Pain,Poor Balance PT-Balance Assessment Sitting Balance and Reactions Static Sitting Balance Ability Good Dynamic Sitting Balance Ability Fair Standing Balance and Reactions Static Standing Balance Ability Good Dynamic Standing Balance Ability Good Device Used FWW M5 PT-IP Objective Assessments Start: 07/01/23 12:09 Freq: NEEDED Status: Active Protocol: Document 07/01/23 10:40 AB (Rec: 07/01/23 12:24 AB [id number]) Orientation Orientation/Cognition Level of Alertness Alert Orientation Name,Place,Situation Language Function Ability No Deficits Noted Safety Awareness Decreased Safety Awareness Memory Description No Deficits Noted Gross Range of Motion Lower Extremity ROM Assessment Within Functional Limits Strength Lower Extremity Strength Assessment Bilaterally Impaired Comments Strength Comments LLE: 3+/5 RLE: 4-/5 Coordination Assessment Gross Coordination Gross Coordination WNL Muscle Tone Muscle Tone WNL Yes M6 PT-IP Treatment Start: 07/01/23 12:09 Freq: NEEDED Status: Active Protocol: Document 07/03/23 11:15 TS (Rec: 07/03/23 11:27 [id number]) Physical Therapy Treatment Education Education Provided Precautions,Weight Bearing Status,Post-Op Packet,Safety M7 PT-IP Assessment and Plan Start: 07/01/23 12:09 Freq: NEEDED Status: Active Protocol: Document 07/03/23 11:15 TS (Rec: 07/03/23 11:27 [id number]) PT Summary Assessment and Plan Potential Rehabilitation Potential Fair Summary Impairments Pain,ROM,Strength,Balance, Coordination,Sensation,Tone, Cognition,Bed Mobility, Transfers,Gait,Activity Tolerance Progress Towards Goals Progressing Toward Goals Assessment Summary Carolyn continues to do well with her mobility. She is CGA for bed mobility and demonstrates good awareness of her spinal precautions. She is SBA for STS and gait with FWW. She progressed her gait to ~225 SBA with FWW, had no buckling LOB. PT is recommending home with assist and HHPT. Goals Transfer Goal Standby Assistance,Front Wheeled Walker Gait Goal Standby Assistance,Front Wheel Walker Gait Distance 200 Other Goals improve transfers and ambualtion using LRAD ~ 250 ft SBA up/down 1 step using FWW SBA Days to Meet Goals 10 Frequency of Treatment Frequency Of Treatment Twice a Day Treatment Plan Physical Therapy Treatment Plan Bed Mobility Training,Transfer Training,Gait Training, Therapeutic Exercise,Balance Retraining,Post Op Education, Discharge Planning,Hot or Cold Pack,Neuromuscular Re-ed, Coordination Retraining,Manual Therapy Precautions Lumbar Precautions Log Roll,No Twisting,Limit Bending,Lifting Restriction of 10 lbs,Gait Belt above Incisional Area Recommendations To Nursing Amount of Assist Needed 1 Person Assist Discharge Recommendations PT Discharge Recommendations Home with Assistance,Home Health Transportation Needs at Discharge Private Vehicle
--- NOTE | 2023-07-03 10:35 | OT.IPNOTE ---
Check in with pt for a shower, however pt refusing at this time due to pain from being constipated. Nursing aware.
[2023-07-03] MEDS: BISACODYL 10 MG SUPP PR (10:58)
--- NOTE | 2023-07-03 12:16 | CM.DPNOTE ---
Addendum entered by JADIEL Real 07/04/23 08:16: ADD: Patient stayed last night for imaging, concern for ileus, no BM up until last evening. Discharge home today w/spouse to transport, [facility] to follow. NIKOLAS Original Note: DC Note Discharge order in place, patient cleared by therapy for this plan. Met w/patient and her spouse, Ahmet. Spouse reports concern about caring for patient at home. Patient adamantly against SNF. Explained that at this time, it is unlikely that patient's [employer] insurance would authorize SNF because patient is moving very well. Patient wonders if she can change her mind and go to SNF once home; explained that SNF would likely be private payment and admission into a SNF may be a more challenging process from home, patient states understanding. Discussed home health services and in home care options. Patient agreeable to HH, says she had [facility] in the past. Discussed privately paid in home care and strongly encouraged patient to begin calls to in home care agencies today. Home health services approved by Dr Crandall to assist in safe discharge planning. Provided patient and spouse the senior resource guide for [facility] and brochure for [facility] caregiver agency. Spouse reports he is a of the [place], not currently enrolled in VA services. ARIADNA Conti, kindly agreed to send this referral to [facility]. Completed F2F and HH order provided for referral. Patient and spouse inevitably agreeable to patient's discharge home today and appreciative for resource referral. Plan: Discharge home w/spouse via pov, [facility] RN/PT/OT/CLEANER WINDOW/FROG CATCHER, patient to follow up on in home care options. NIKOLAS
--- NOTE | 2023-07-03 15:33 | PT.IPTN ---
Current Diagnoses Other intervertebral disc displacement, lumbar region (06/30/23) Postlaminectomy syndrome, not elsewhere classified (06/30/23) Surgery Performed Operation Date: 06/30/23 09:45 Actual Procedures p L2-3 TLIF-Robot - Celeste Crandall MD Physical Therapy Treatment Note M2 PT-IP Current Condition Start: 07/01/23 12:09 Freq: NEEDED Status: Active Protocol: Document 07/01/23 10:40 AB (Rec: 07/01/23 12:24 AB [id number]) Physical Therapy Current Condition Current Condition Evaluation Date 07/01/23 Treatment Diagnosis s/p L2-3 TLIF; difficulty in walking Onset Date 06/30/23 M3 PT-IP Subjective Start: 07/01/23 12:09 Freq: NEEDED Status: Active Protocol: Document 07/03/23 15:58 TS (Rec: 07/03/23 16:03 TS [id number]) Subjective Physical Therapy Visit Type Type Treatment Note Visit Start Time 15:33 Visit Stop Time 15:57 Number of BUSINESS DIVISION CHAIR Visits 3 Physical Therapy Visit Comments Patient Comments Pt found resting in bed, reports she is going to have an x-ray on her abdomen, is agreeable to PT. Therapy Pain Assessment Pain When Pain Assessed At Rest Pain Present Pain Present Pain Reported M4 PT-IP Mobility and Gait Start: 07/01/23 12:09 Freq: NEEDED Status: Active Protocol: Document 07/03/23 15:58 TS (Rec: 07/03/23 16:03 TS [id number]) PT-Bed Mobility Assessment Rolling Type of Rolling Log Rolling Level of Assist Standby Assistance Supine to Sit Supine to Sit Contact Guard Assistance,1 Person Assistance Sit to Supine Sit to Supine Minimal Assistance,1 Person Assistance Scooting Scooting to Edge of Bed Standby Assistance PT-Transfer Assessment Sit to and From Stand Sit to and from Stand Standby Assistance Equipment Transfer Assistive Device Gait Belt,Front Wheeled Walker Orthotic/Prosthetic Devices or Brace: No Comments Mobility Comments Supine to sit SBA for uprighting trunk, pt demonstrates good awareness of her precautions. She ambulated in hallway ~250'SBA with FWW, had no buckling or LOB. Sit to supine into bed Raisa for LE's and pt required cues for sequencing. Pt was left in bed, all needs met. Gait Assessment Gait Gait Assistance Required: Standby Assistance Distance (Feet) 250 Able to Maintain Weight Bearing Status Yes During Gait Assistive Devices Assistive Device Gait Belt,Front Wheeled Walker Orthotic/Prosthetic Devices or Brace: No Gait Deviations General Gait Pattern Decreased Stride Length, Decreased Feet Clearance Factors Limiting Gait Function Factors Limiting Gait Function Decreased Activity Tolerance, Decreased Strength,Limited Range of Motion,Pain,Poor Balance PT-Balance Assessment Sitting Balance and Reactions Static Sitting Balance Ability Good Dynamic Sitting Balance Ability Fair Standing Balance and Reactions Static Standing Balance Ability Good Dynamic Standing Balance Ability Good Device Used FWW M5 PT-IP Objective Assessments Start: 07/01/23 12:09 Freq: NEEDED Status: Active Protocol: Document 07/01/23 10:40 AB (Rec: 07/01/23 12:24 AB [id number]) Orientation Orientation/Cognition Level of Alertness Alert Orientation Name,Place,Situation Language Function Ability No Deficits Noted Safety Awareness Decreased Safety Awareness Memory Description No Deficits Noted Gross Range of Motion Lower Extremity ROM Assessment Within Functional Limits Strength Lower Extremity Strength Assessment Bilaterally Impaired Comments Strength Comments LLE: 3+/5 RLE: 4-/5 Coordination Assessment Gross Coordination Gross Coordination WNL Muscle Tone Muscle Tone WNL Yes M6 PT-IP Treatment Start: 07/01/23 12:09 Freq: NEEDED Status: Active Protocol: Document 07/03/23 15:58 TS (Rec: 07/03/23 16:03 TS [id number]) Physical Therapy Treatment Education Education Provided Precautions,Weight Bearing Status,Post-Op Packet,Safety M7 PT-IP Assessment and Plan Start: 07/01/23 12:09 Freq: NEEDED Status: Active Protocol: Document 07/03/23 15:58 TS (Rec: 07/03/23 16:03 TS [id number]) PT Summary Assessment and Plan Potential Rehabilitation Potential Fair Summary Impairments Pain,ROM,Strength,Balance, Coordination,Sensation,Tone, Cognition,Bed Mobility, Transfers,Gait,Activity Tolerance Progress Towards Goals Progressing Toward Goals Assessment Summary Carolyn continues to do well with her mobility. She is SBA for all bed mobility. She continues to ambulate long distances with no LOB. She demonstrates good awareness with her spinal precautions. PT is recommending Home with assist and HHPT. Goals Transfer Goal Standby Assistance,Front Wheeled Walker Gait Goal Standby Assistance,Front Wheel Walker Gait Distance 200 Other Goals improve transfers and ambualtion using LRAD ~ 250 ft SBA up/down 1 step using FWW SBA Days to Meet Goals 10 Frequency of Treatment Frequency Of Treatment Twice a Day Treatment Plan Physical Therapy Treatment Plan Bed Mobility Training,Transfer Training,Gait Training, Therapeutic Exercise,Balance Retraining,Post Op Education, Discharge Planning,Hot or Cold Pack,Neuromuscular Re-ed, Coordination Retraining,Manual Therapy Precautions Lumbar Precautions Log Roll,No Twisting,Limit Bending,Lifting Restriction of 10 lbs,Gait Belt above Incisional Area Recommendations To Nursing Amount of Assist Needed 1 Person Assist Discharge Recommendations PT Discharge Recommendations Home with Assistance,Home Health Transportation Needs at Discharge Private Vehicle
--- NOTE | 2023-07-03 15:39 | DI.RAD.S_ITS ---
PROCEDURE: XR KUB INDICATIONS: abdominal pain; constipation TECHNIQUE: One view of the abdomen acquired. COMPARISON: None. FINDINGS: Surgical changes and devices: None. Bowel: Moderate fecal debris in the right colon. No obstruction. Soft tissues: No suspicious abdominal calcifications. Visualized solid organ contours appear normal in size. Bones: L2-3 instrumented discectomy and fusion. L3, L4 and L5 decompressive laminectomies. IMPRESSION: Moderate fecal debris in the right colon. No obstruction. Approved by: Gurvinder Kaiser M.D. on 07/03/2023 at 16:42
--- NOTE | 2023-07-03 17:10 | OT.IP.TRT ---
Current Diagnoses Other intervertebral disc displacement, lumbar region (06/30/23) Postlaminectomy syndrome, not elsewhere classified (06/30/23) Surgery Performed Operation Date: 06/30/23 09:45 Actual Procedures p L2-3 TLIF-Robot - Celeste Crandall MD Occupational Therapy Treatment Note M2 OT-IP Current Condition Start: 07/01/23 10:17 Freq: Status: Active Protocol: Document 07/01/23 10:17 [facility] (Rec: 07/01/23 10:37 [facility] [id number]) Occupational Therapy Current Condition Current Condition Evaluation Date 07/01/23 Treatment Diagnosis S/P L2-3 TLIF Diagnosis Onset Date 06/30/23 Post Operative Precautions Lumbar Precautions Log Roll,No Twisting,Limit Bending,Lifting Restriction of 10 lbs,Gait Belt above Incisional Area M3 OT- IP Subjective and Pain Start: 07/01/23 10:17 Freq: Status: Active Protocol: Document 07/03/23 17:43 [facility] (Rec: 07/03/23 17:54 [facility] [id number]) OT- Subjective Occupational Therapy Visit Type Type Treatment Note Visit Start Time 16:40 Visit Stop Time 17:10 Occupational Therapy Visit Comments Patient Comments Pt wanting to use the bathroom . Patient/Caregiver Goals To go home. OT Pain Assessment Pain When Pain Assessed During Mobility Pain Present Pain Present Pain Reported Location back Intensity 3 Scale Used Numeric (0 - 10) M4 OT- IP ADL's Start: 07/01/23 10:17 Freq: Status: Active Protocol: Document 07/03/23 17:43 [facility] (Rec: 07/03/23 17:54 [facility] [id number]) OT ADL-Toileting General Evaluation Toileting Ability Standby Assistance Comments OT Toileting Comments Pt able to wipe while standing and following her back precautions after urinating. Pt states her has ordered her a toilet paper aid for home use. M5 OT- IP IADL's Start: 07/01/23 10:17 Freq: Status: Active Protocol: Document 07/01/23 10:17 [facility] (Rec: 07/01/23 10:37 [facility] [id number]) OT-Instrumental Activities of Daily Living Deficits IADL Deficits Identified Deficits Home Safety Awareness Awareness of Need for Assistance at Home Good Awareness Ability to Problem Solve Emergency Able to Problem Solve Situations Home Safety Comments Pt's to provide supervision as needed. Medication Management Medication Management No Deficits Identified Money Management Money Management No Deficits Identified Fire Support Specialist Fire Support Specialist Caregiver Provides Assist M6 OT- IP Functional Cognition Start: 07/01/23 10:17 Freq: Status: Active Protocol: Document 07/03/23 17:43 [facility] (Rec: 07/03/23 17:54 [facility] [id number]) Cognitive Factors Limiting Selfcare Function Cognitive Ability Level of Alertness Alert Cognitive Comments Cognitive Assessment Comments Intact, however at time needing reminders to not twist in the bed when trying to reposition. M7 OT- IP Mobility and Balance Start: 07/01/23 10:17 Freq: Status: Active Protocol: Document 07/03/23 17:43 [facility] (Rec: 07/03/23 17:54 [facility] [id number]) OT- Bed Mobility Assessment Sit to Supine Sit to Supine Assist Minimal Assistance OT-Transfer Assessment Sit to and From Stand Sit to and from Stand Standby Assistance Transfers Transfer Ability Standby Assistance Comments Mobility Comments SBA to stand from the bed and vc to push up from the bed to stand to the FWW. SBA to walk to the bathroom. Assist to help get her legs back into bed. OT- Balance Assessment Sitting Balance and Reactions Static Sitting Balance Ability Good Dynamic Sitting Balance Ability Good Standing Balance and Reactions Static Standing Balance Ability Good Dynamic Standing Balance Ability Good M8 OT- IP Objective Assessments Start: 07/01/23 10:17 Freq: Status: Active Protocol: Document 07/01/23 10:17 [facility] (Rec: 07/01/23 10:37 [facility] [id number]) OT Gross Range of Motion Upper Extremity Range of Motion Assessment Within Functional Limits OT Strength Upper Extremity Strength Assessment Within Functional Limits M9 OT- IP Assessment and Plan Start: 07/01/23 10:17 Freq: Status: Active Protocol: Document 07/03/23 17:43 [facility] (Rec: 07/03/23 17:54 [facility] [id number]) OT Summary Assessment and Plan Potential Rehabilitation Potential Good Analytic Complexity at Evaluation Low Summary OT Impairments Pain,Strength,Balance, Functional Mobility,Grooming, Dressing,Toileting,Bathing, Toilet Transfers,Shower Transfers,Activity Tolerance Progress Towards Goals Progressing Toward Goals,Slow Progress due to Medical Issues Assessment Summary Pt able to use the bathroom and still constipated at this time. Pt looking to go home when medically stable with assist. Goals Grooming Goal Independent Dressing Goal Independent Toileting Goal Independent Bathing Goal Standby Assistance Toilet Transfer Goal Independent Shower Transfer Goal Standby Assistance Days to Meet Goals 2 Frequency of Treatment Frequency Of Treatment Once a Day Treatment Plan OT Treatment Plan ADL Training,Functional Mobility,Patient/Family Education,Discharge Planning Other Treatment Recommendations and Next Shower Treatment Focus Discharge Recommendations Transportation Needs at Discharge Private Vehicle
[2023-07-03] MEDS: SENNOSIDES 8.6 MG TABLET 17.2 MG PO (20:37)
[2023-07-03] MEDS: VERAPAMIL 80 MG TABLET PO (20:43)
[2023-07-03] MEDS: lisinopriL 20 MG TABLET 40 MG PO (20:43)
[2023-07-04 02:35] VITALS: BP 131/66; PULSE 88; RESP 16; TEMP 37; O2SAT 95
[2023-07-04] MEDS: LEVOTHYROXINE 50 MCG TABLET 150 MCG PO (05:29)
[2023-07-04] MEDS: polyethylene glycoL 3350 17 GM POWD.PACK PO (05:33)
[2023-07-04 07:00] VITALS: BP 165/86; PULSE 83; RESP 16; TEMP 36.6; O2SAT 95
--- NOTE | 2023-07-04 07:14 | PM.DS.1 ---
History of Present Illness History of Present Illness Date Patient Seen: 07/04/23 Time Patient Seen: 07:14 Chief complaint: Lumbar TLIF Narrative: Operative Date/Time/Diagnoses Date of procedure: 06/30/23 Time of procedure: 10:25 Pre-op diagnosis: 1. L2-3 spinal stenosis 2. L2-3 history of laminectomy with recurrent disc herniation Post-op diagnosis: same Procedure & Clinicians Procedure: 1. L2-3 Postero-lateral and posterior interbody fusion 2. L2-3 interbody cage placement. 3. L2-3 decompressive laminectomy with bilateral facetecomies 4. L2-3 Posterior non-segmental instrumentation 5. [place] of bone marrow from iliac crest 6. Utilization of microsurgical technique and operating microscope 7. Utilization of robotic assisted navigation Same procedure as scheduled: Yes Indications: Patient has been having chronic back pain and worsening lumbar radiculopathy. Patient had previous history of L2-S1 laminectomy in 2005 has been doing well until 6 months ago. Patient was found have a large L2-3 extruded disc with caudal migration causing significant radiculopathy correlating with patient's symptoms. Patient failed multiple conservative management with worsening pain weakness and numbness in her lower extremity. Patient has been having difficulty performing activity of daily living. After discussing risks benefits of treatment options, patient elected proceed with surgery. Surgeon: Celeste Crandall Plaster Block Layer: Karina Renteria Click Yes if Unassisted: No Anesthesia Type: General Operative Notes Closure Type: primary Prosthetic devices, grafts, tissues, transplants, or devices: Globus CREO MIS screws, Rise cage Estimated Blood Loss (mL): 100 Blood products transfused: none Discharge Providers Provider Date of admission: 06/30/23 08:04 Discharge Date: 07/04/23 Primary care physician: Clare Macias PA-C Consults: 06/25/23 12:08 Consult to Anesthesiology Routine Comment: Consulting Provider: Anesthesiologist Reason for consultation: PAC-PCP deferring to surgical or anesthesia for cardiac clearance 06/30/23 14:09 Consult to Occupational Therapy Evaluate & Treat Comment: Physician Instructions: Evaluate and treat Consult to Physical Therapy Evaluate & Treat Comment: Physician Instructions: Evaluate and Treat 07/03/23 11:03 Consult to Home Health Routine Comment: Reason For Exam: Home health services upon discharge Discharge provider: Geovany Cobb PA-C Summary Hospital Course Discharge Diagnosis: Status post multi level TLIF Hospital Course: Multi modal pain control. PT. Worked up abdominal cramping with included negative KUB plain film for ileus. Cramping was due to constipation. She finally had a bowel movement on the evening of POD 3 and morning of POD 4. Status at Discharge Cognitive/behavioral status at discharge: oriented Functional status at discharge: uses cane/walker Overall status at discharge: patient is back to baseline Time Spent with Patient Time spent: Less than 30 minutes Exam Vital Signs (past 8 hours): - 07/04/23 02:35 Temperature 98.6 F Pulse Rate 88 Respiratory Rate 16 Blood Pressure 131/66 Pulse Oximetry 95 Oxygen Flow Rate 0 Oxygen Delivery Method Room Air Oxygen Flow Rate 0 Narrative Exam Narrative: Patient' is found lying in bed. She has back spasms and pain. She has difficulty getting out of bed, but feels better once able to get on her feet. Her abdominal cramping has reduced after having a BM. No new numbness, tingling or weakness down her feet. SCD's are on. LEFT: 5/5 strength with EHL. 4/5 PF, 4/5 DF. RIGHT: 5/5 strength with EHL, DL, PF. No increased tenderness to palpation of the abdomen PFSH Medical History History of COVID-19 (~2021) IBS (irritable bowel syndrome) Breast cancer (2021) Syncope History of viral meningitis Migraines Vertigo Nerve pain Osteoporosis Hypothyroidism HTN (hypertension) Lumbar disc herniation Lumbar post-laminectomy syndrome Chronic low back pain SVT (supraventricular tachycardia) NSVT (nonsustained ventricular tachycardia) Surgical History Hx of hemorrhoidectomy Hx of colonoscopy Hx of arthroscopy of left knee History of lumpectomy of right breast (2021) Hx of bilateral cataract extraction Hx of tonsillectomy Hx of appendectomy Hx of shoulder surgery Hx of laminectomy (2005) Social History household members: spouse Smoking Status: Former smoker alcohol intake: current Discharge Assessment & Plan Assessment and Plan Assessment: Status post TLIF Plan of Treatment: Discharge home with Home Health 1)?? Continue multimodal pain management. 2) No lifting, twisting, deep bending, prolonged sitting. 3) keep dressing clean and dry, no soaking the incision site and posterior times, no topical ointments or creams to the incision site. 4) Follow up in 2 weeks at [facility] for as scheduled for postop appointment, wound check, staple removal. Discharge Plan Discharge Plan Patient Disposition: Home Discharge orders & Medications Prescriptions: New docusate sodium 100 mg Capsule 100 mg PO BID PRN (Reason: Constipation) Qty: 60 0RF Continued anastrozole 1 mg Tablet 1 mg PO DAILY gabapentin 600 mg Tablet 600 mg PO TID acyclovir 400 mg Tablet 400 mg PO DAILY PRN (Reason: Flare up) zolmitriptan [Zomig] 5 mg Tablet 5 mg PO Q2-4H PRN (Reason: Migraine Headache) Rx Instructions: do not exceed 2 doses per 24 hrs meclizine 25 mg Tablet 25 mg PO DAILY PRN (Reason: Vertigo, nausea) levothyroxine 150 mcg Tablet 150 mcg PO DAILY verapamil 240 mg Tablet Extended Release 240 mg PO BEDTIME lisinopril 40 mg Tablet 40 mg PO BEDTIME acetaminophen 500 mg Capsule 500 mg PO DAILY pregabalin 100 mg Capsule 100 mg PO BID diphenhydramine-acetaminophen [Tylenol PM Extra Strength] 25-500 mg Tablet 2 tab PO BEDTIME Discontinued ibuprofen 200 mg Tablet 600 mg PO DAILY Medication counseling provided by Pharmacist: Yes Follow up/Referrals: Clare Macias PA-C [Primary Care Provider] - Celeste Crandall MD [Physician] - 07/15/23 2:30 pm (Follow up w/ Mainor Cobb PA-C, at [employer] office in [place].) Diet/Activity/Treatments Diet: Diet as Tolerated Activity: No deep bending, twisting or lifting more than 10 lb. Cold/Heat Therapy: Heat to the low back as needed for muscle spasm. Skin/Wound/Dressing Care Report to your healthcare provider any signs of infection, such as:: chills, fever, night sweats, unusual drainage and unusual redness Dressing: Keep dressing intact, clean and dry until 2 week post-op appointment. No soaking the incision site in pools or tubs. No topical ointments or creams to the incision site. Visit Report/Discharge Packet Instructions: How to Prevent Falls, DI for Prescription Opioid Use, DI for Transforaminal Lumbar Interbody Fusion Stand Alone Forms: Patient Portal/API, Stroke Signs & Symptoms, Surgery Discharge Discharge Data Primary Care Provider: Clare Macias VTE Deep Vein Thrombosis/Pulmonary Embolism Present on Admission: No
[2023-07-04] MEDS: HYDROCODONE/ACET 5/325 TABLET 1 TAB PO ×2 (07:42→11:23)
[2023-07-04] MEDS: hydrOXYzine HCL 25 MG TABLET PO (07:48)
[2023-07-04] MEDS: ANASTROZOLE 1 MG TABLET PO (08:55)
[2023-07-04] MEDS: DOCUSATE 100 MG CAPSULE PO (08:55)
[2023-07-04] MEDS: GABAPENTIN 600 MG TABLET PO (08:55)
[2023-07-04] MEDS: PREGABALIN 50 MG CAPSULE 100 MG PO (08:55)
--- NOTE | 2023-07-04 09:20 | PT.IPTN ---
Current Diagnoses Other intervertebral disc displacement, lumbar region (06/30/23) Postlaminectomy syndrome, not elsewhere classified (06/30/23) Surgery Performed Operation Date: 06/30/23 09:45 Actual Procedures p L2-3 TLIF-Robot - Celeste Crandall MD Physical Therapy Treatment Note M2 PT-IP Current Condition Start: 07/01/23 12:09 Freq: NEEDED Status: Active Protocol: Document 07/01/23 10:40 AB (Rec: 07/01/23 12:24 AB [id number]) Physical Therapy Current Condition Current Condition Evaluation Date 07/01/23 Treatment Diagnosis s/p L2-3 TLIF; difficulty in walking Onset Date 06/30/23 M3 PT-IP Subjective Start: 07/01/23 12:09 Freq: NEEDED Status: Active Protocol: Document 07/04/23 10:17 TS (Rec: 07/04/23 10:22 TS [id number]) Subjective Physical Therapy Visit Type Type Treatment Note Visit Start Time 09:20 Visit Stop Time 09:36 Number of LICENSED 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 Therapy Pain Assessment Pain When Pain Assessed During Mobility Pain Present Pain Present Pain Reported M4 PT-IP Mobility and Gait Start: 07/01/23 12:09 Freq: NEEDED Status: Active Protocol: Document 07/04/23 10:17 TS (Rec: 07/04/23 10:22 TS [id number]) PT-Bed Mobility Assessment Rolling Type of Rolling Log Rolling Level of Assist Standby Assistance Supine to Sit Supine to Sit Contact Guard Assistance,1 Person Assistance Scooting Scooting to Edge of Bed Standby Assistance PT-Transfer Assessment Sit to and From Stand Sit to and from Stand Standby Assistance Equipment Transfer Assistive Device Gait Belt,Front Wheeled Walker Orthotic/Prosthetic Devices or Brace: No Comments Mobility Comments Supine to sit SBA with good carryover of sequencing. She ambulated ~250'SBA with FWW. She performed 1 step with FWW SBA and no cues. Pt abulated to room, was left on toilet, nursing notified. Gait Assessment Gait Gait Assistance Required: Standby Assistance Distance (Feet) 250 Able to Maintain Weight Bearing Status Yes During Gait Assistive Devices Assistive Device Gait Belt,Front Wheeled Walker Orthotic/Prosthetic Devices or Brace: No Gait Deviations General Gait Pattern Decreased Stride Length, Decreased Feet Clearance Factors Limiting Gait Function Factors Limiting Gait Function Decreased Activity Tolerance, Decreased Strength,Limited Range of Motion,Pain,Poor Balance Stair Climbing Assessment Evaluation Level of Assist On Stairs Standby Assistance Devices Stair Climbing Assistive Devices Front Wheel Walker Technique/Endurance Stair Climbing Direction Ascend and Descend Stair Climbing Technique Step to Step Number of Steps Climbed 1 PT-Balance Assessment Sitting Balance and Reactions Static Sitting Balance Ability Good Dynamic Sitting Balance Ability Good Standing Balance and Reactions Static Standing Balance Ability Good Dynamic Standing Balance Ability Good Device Used FWW M5 PT-IP Objective Assessments Start: 07/01/23 12:09 Freq: NEEDED Status: Active Protocol: Document 07/01/23 10:40 AB (Rec: 07/01/23 12:24 AB [id number]) Orientation Orientation/Cognition Level of Alertness Alert Orientation Name,Place,Situation Language Function Ability No Deficits Noted Safety Awareness Decreased Safety Awareness Memory Description No Deficits Noted Gross Range of Motion Lower Extremity ROM Assessment Within Functional Limits Strength Lower Extremity Strength Assessment Bilaterally Impaired Comments Strength Comments LLE: 3+/5 RLE: 4-/5 Coordination Assessment Gross Coordination Gross Coordination WNL Muscle Tone Muscle Tone WNL Yes M6 PT-IP Treatment Start: 07/01/23 12:09 Freq: NEEDED Status: Active Protocol: Document 07/04/23 10:17 TS (Rec: 07/04/23 10:22 TS [id number]) Physical Therapy Treatment Education Education Provided Precautions,Weight Bearing Status,Post-Op Packet,Safety M7 PT-IP Assessment and Plan Start: 07/01/23 12:09 Freq: NEEDED Status: Active Protocol: Document 07/04/23 10:17 TS (Rec: 07/04/23 10:22 [id number]) PT Summary Assessment and Plan Potential Rehabilitation Potential Fair Summary Impairments Pain,ROM,Strength,Balance, Coordination,Sensation,Tone, Cognition,Bed Mobility, Transfers,Gait,Activity Tolerance Progress Towards Goals Progressing Toward Goals Assessment Summary Carolyn continues to do well with her mobility. She is SBA for all bed mobility and demonstrates good technique. She continues to ambulate long distances with FWW. She performed 1 step SBA with FWW. PT is recommending home with assist and HHPT. Goals Transfer Goal Standby Assistance,Front Wheeled Walker Gait Goal Standby Assistance,Front Wheel Walker Gait Distance 200 Other Goals improve transfers and ambualtion using LRAD ~ 250 ft SBA up/down 1 step using FWW SBA Days to Meet Goals 10 Frequency of Treatment Frequency Of Treatment Twice a Day Treatment Plan Physical Therapy Treatment Plan Bed Mobility Training,Transfer Training,Gait Training, Therapeutic Exercise,Balance Retraining,Post Op Education, Discharge Planning,Hot or Cold Pack,Neuromuscular Re-ed, Coordination Retraining,Manual Therapy Precautions Lumbar Precautions Log Roll,No Twisting,Limit Bending,Lifting Restriction of 10 lbs,Gait Belt above Incisional Area Recommendations To Nursing Amount of Assist Needed 1 Person Assist Discharge Recommendations PT Discharge Recommendations Home with Assistance,Home Health Transportation Needs at Discharge Private Vehicle
--- NOTE | 2023-07-04 12:57 | CM.DPNOTE ---
DC Note Discharge home today w/spouse, [facility] to follow for home health services. Transport via spouse's pov. Cleared by therapies for this plan. JW
== END 2023-07-04 11:35 | disposition home health service (06) | DRG 455 ==
PROVIDERS: Admitting Provider Orthopaedic Surgery Orthopaedic Surgery of the Spine; PCP Physician Assistant; Referring Provider Orthopaedic Surgery Orthopaedic Surgery of the Spine; Visit Provider Orthopaedic Surgery Orthopaedic Surgery of the Spine
PROC: 0SG00AJ Fusion of Lumbar Vertebral Joint with Interbody Fusion Device, Posterior Approach, Anterior Column, Open Approach (ICD-10-PCS; principal; 2023-06-30 09:45)
DX: M48.061 Spinal stenosis, lumbar region without neurogenic claudication (principal); M51.26 Other intervertebral disc displacement, lumbar region; M96.1 Postlaminectomy syndrome, not elsewhere classified; K59.00 Constipation, unspecified; C50.919 Malignant neoplasm of unspecified site of unspecified female breast; G43.909 Migraine, unspecified, not intractable, without status migrainosus; E03.9 Hypothyroidism, unspecified; I10 Essential (primary) hypertension; Z87.891 Personal history of nicotine dependence
CPT/HCPCS: 72100; 74018; 76000; 97116; 97162; 97165; 97530; 97535; A9270; C1713; C1821; C9290; J0171; J0330; J0690; J1100; J1170; J1200; J2060; J2250; J2405; J2704; J3010